=== PATIENT | female | born 1965 | race Caucasian/White ===

== ENCOUNTER 2018-03-10 10:40 | Inpatient (IN) | payer MEDICARE, MEDICAID ==
[~2018-03-10] VITALS: Ht 152.4 cm; Wt 113.4 kg
--- NOTE | 2018-03-10 11:06 | NUR ---
[facility] 4 PRESSURE ULCER ON LEFT ISCHIUM. PT COMPLAINS OF GENERALIZED CHRONIC PAIN THAT IS "ALWAYS A 10/10". PT IS AOX4, VSS, RR EVEN AND UNLABORED. SKIN WARM TO TOUCH, DRY, INTACT. NO ACUTE DISTRESS NOTED. READY FOR EVAL AND ORDERS.
--- NOTE | 2018-03-10 11:15 | NUR ---
TRIXIE PETERS STRADDLE BUGGY OPERATOR AT BEDSIDE FOR WOUND ASSESSMENT
[2018-03-10] MEDS ORDERED: IV NS 0.9% 1,000 ML BAG IV ONE (11:30)
[2018-03-10] MEDS ORDERED: ONDANSETRON HCL/PF 4 MG/2 ML VIAL IVP ONE (11:30)
[2018-03-10] MEDS ORDERED: MORPHINE SULFATE INJ 2 MG/ML DISP.SYRIN IV ONE (11:30)
[2018-03-10] MEDS ORDERED: MAGN400O6 PO (11:51)
[2018-03-10] MEDS ORDERED: METO25TA20 PO (11:51)
[2018-03-10] MEDS ORDERED: FURO-145 PO (11:51)
[2018-03-10] MEDS ORDERED: ASCO500T8 PO (11:51)
[2018-03-10] MEDS ORDERED: OXYC-128 PO (11:51)
[2018-03-10] MEDS ORDERED: FLUT16SP BNOSTRILS (11:51)
[2018-03-10] MEDS ORDERED: ACID1TAB12 PO (11:51)
[2018-03-10] MEDS ORDERED: TRAM50TA2 PO (11:51)
[2018-03-10] MEDS ORDERED: FENO160T PO (11:51)
[2018-03-10] MEDS ORDERED: ZINC220C8 PO (11:51)
[2018-03-10] MEDS ORDERED: CALC-7 PO (11:51)
[2018-03-10] MEDS ORDERED: MULT-447 PO (11:51)
[2018-03-10] MEDS ORDERED: GABA800T11 PO (11:51)
[2018-03-10] MEDS ORDERED: BISA10SU8 RC (11:51)
[2018-03-10] MEDS ORDERED: INTE0.3K3 SQ (11:51)
[2018-03-10] MEDS ORDERED: OXYB5TAB11 PO (11:51)
[2018-03-10] MEDS ORDERED: POTA20TA83 PO (11:51)
[2018-03-10] MEDS ORDERED: ACET-868 PO ×2 (11:51)
[2018-03-10] MEDS ORDERED: DOCU-141 PO (11:51)
--- NOTE | 2018-03-10 11:58 | NUR ---
PHLEB AT BEDSIDE FOR BLOOD DRAW
[2018-03-10] MEDS ORDERED: ACETAMINOPHEN 325 MG TABLET ONE (12:13)
[2018-03-10 12:30] LABS: BASOPHILS # (AUTO) 0.1 /CMM (0.0-0.2); EOSINOPHILS % (AUTO) 3.7 % (0.0-6.0); HEMATOCRIT 34 % (33-45); HEMOGLOBIN 10.8 g/dL (11.5-14.8); LYMPHOCYTES # (AUTO) 2.1 /CMM (0.8-4.8); LYMPHOCYTES % (AUTO) 20.7 % (20.0-44.0); MEAN CORPUSCULAR HGB CONC 32 g/dl (31.0-36.0); MEAN CORPUSCULAR VOLUME 83 fL (82-100); MONOCYTES # (AUTO) 0.9 /CMM (0.1-1.30); MONOCYTES % (AUTO) 9.2 % (2.0-12.0); NEUTROPHILS # (AUTO) 6.7 /CMM (1.8-8.9); NEUTROPHILS % (AUTO) 65.4 % (43.0-81.0); PLATELET COUNT (AUTO) 475 /CMM (150-450); RED BLOOD CELL COUNT(AUTO) 4.12 MIL/uL (4.0-5.2); WHITE BLOOD COUNT (AUTO) 10.2 K/uL (4.3-11.0)
[2018-03-10] MEDS ORDERED: ACETAMINOPHEN 325 MG TABLET PO ONE (12:30)
--- NOTE | 2018-03-10 12:33 | NUR ---
REPORT GIVEN TO NICOL BUTLER FOR 315-1 MS
[2018-03-10 12:39] LABS: CALCIUM, SERUM 9.2 mg/dL (8.5-10.1); CREATININE 0.6 mg/dL (0.6-1.3)
[2018-03-10 12:45] LABS: ALBUMIN 2.5 g/dL (3.4-5.0); BILIRUBIN,DIRECT 0.1 mg/dL (0.0-0.2); BILIRUBIN,TOTAL 0.3 mg/dL (0.2-1.0); TOTAL PROTEIN, SERUM 7.4 g/dL (6.4-8.2)
[2018-03-10] MEDS ORDERED: IOHEXOL-300 100 ML VIAL IV ONE (12:45)
[2018-03-10] MEDS ORDERED: CT SWABBABLE VALVE TRANS SET 1 EA INFUS.SET MC ONE (12:45)
[2018-03-10] MEDS ORDERED: IV NS 0.9% 250 ML IV ONE (12:46)
--- NOTE | 2018-03-10 12:53 | NUR ---
PT TAKEN TO RADIOLOGY VIA [facility].
[2018-03-10] MEDS: DAKINS QUARTER STRENGTH (0.125%) 480 ML BOTTLE TOP SCH (13:30)
--- NOTE | 2018-03-10 13:44 | NUR ---
PT TRANSFERRED TO FLOOR VIA [facility] WITH [facility] EMT
--- NOTE | 2018-03-10 14:00 | NUR ---
MS PATENT ENGINEER NOTE PT ARRIVED TO MEDSUR UNIT IN STABLE CONDITION VIA GURNEY ACCOMPANIED BY ER STAFF. PT IS A/O X3, AFEBRILE. RESPIRATIONS ARE EVEN AND UNLABORED, NOT IN ANY ACUTE DISTRESS NOTED. PUPILS ARE REACTIVE TO LIGHT, BILATERAL HAND ANDROID UI DEVELOPER ARE STRONG AND EQUAL. ABDOMEN IS SOFT AND NONDISTENDED, BOWEL SOUNDS ARE PRESENT IN ALL 4 QUADRANTS UPON AUSCULTATION. IV SITE TO RFA G22 INTACT, NO INFILTRATION NOTED. DRESSING KEPT CLEAN AND DRY. LEFT BUTTOCK WOUND NOTED WITH NO DRESSING, SACRAL REDNESS AND PICTURES WERE TAKEN. ALL BELONGINGS WERE ACCOUNTED FOR AND SIGNED. APPLIED ID BAND. DR. DIEHL MADE AWARE OF ADMISSION WITH ORDERS NOTED AND CARRIED OUT. WILL CONTINUE TO MONITOR THROUGHOUT SHIFT FOR CONTINUITY OF CARE.
--- NOTE | 2018-03-10 14:30 | NUR ---
MS RN NOTES-- CALLED PHARMACY FOR DAKINS SOLUTION, SAID THEY WILL BRING IT UP.
[2018-03-10 16:00] VITALS: BP 97/61
[2018-03-10] MEDS ORDERED: TRAMADOL HCL 50 MG TABLET PO PRN (16:00)
[2018-03-10] MEDS ORDERED: INTERFERON BETA 1B SQ SCH (16:00)
[2018-03-10] MEDS ORDERED: MAGNESIUM HYDROXIDE 30 ML UDC PO PRN ×2 (16:00→18:00)
--- NOTE | 2018-03-10 16:20 | NUR ---
MS RN NOTE-- STILL NO DAKINS SOLUTION. CALLED PHARMACY RE: DAKINS SOLUTION, STATED THEY "WILL SEND SOMEONE TO BRING IT UP."
--- NOTE | 2018-03-10 16:50 | NUR ---
MS RN NOTES-- NO DAKINS SOLUTION. WOUND CARE DONE WITH NORMAL SALINE MOISTENED KERLIX, COVERED WITH DRY DRESSING AND TAPE.
[2018-03-10] MEDS: DOCUSATE SODIUM 100 MG CAPSULE PO SCH (17:37)
[2018-03-10] MEDS: OXYBUTYNIN CHLORIDE 5 MG TABLET PO SCH (17:37)
[2018-03-10] MEDS: GABAPENTIN 400 MG CAPSULE PO SCH (17:42)
[2018-03-10] MEDS ORDERED: HYDROCODONE/APAP 5/325MG 1 EACH TABLET PO PRN (18:00)
[2018-03-10] MEDS ORDERED: ACETAMINOPHEN 325 MG TABLET PO PRN (18:00)
[2018-03-10] MEDS ORDERED: MAG HYDROX/AL HYDROX/SIMETH 30 ML UDC PO PRN (18:00)
[2018-03-10] MEDS ORDERED: ONDANSETRON HCL/PF 4 MG/2 ML VIAL IVP PRN (18:00)
[2018-03-10] MEDS ORDERED: Z GUARD REMEDY 2 OZ OINT TP PRN (18:00)
--- NOTE | 2018-03-10 18:31 | NUR ---
MS RN CLOSING NOTES ALL DUE MEDS GIVEN, NEEDS MET AND RENDERED. PT IS A/O X3, AFEBRILE. RESPIRATIONS ARE EVEN AND UNLABORED, NOT IN ANY ACUTE DISTRESS NOTED. PT DENIES ANY PAIN AT THIS TIME, NO C/O SOB, N/V. IV SITE INTACT, NO INFILTRATION NOTED. DRESSING KEPT CLEAN AND DRY. SAFETY MEASURES ARE IN PLACE. REMINDED PT TO USE CALL LIGHT WHEN ASSISTANCE IS NEEDED, CALL LIGHT IS LEFT WITHIN REACH. WILL ENDORSE TO NEXT SHIFT FOR CONTINUITY OF CARE.
--- NOTE | 2018-03-10 19:40 | NUR ---
MS RN NOTES RECEIVED ON BED A/O X3,NO SOB,WENDY PAIN,SACRAL WOUND WITH DRESSING INTACT AND DRY.SALINE LOCK RFA INTACT AND PATENT.INSTRUCTED NPO POST MIDNIGHT FOR SACRAL WOUND DEBRIDEMENT,CONSENT ON CHART.OBESE,ON GEL BED FOR SKIN MANAGEMENT.CALL LIGHT IN REACH,NEEDS ANTICIPATED.
[2018-03-10 20:00] VITALS: BP 103/57
[2018-03-10] MEDS: METOPROLOL TARTRATE 25 MG TABLET PO SCH (21:22)
[2018-03-10] MEDS: oxyCODONE/APAP (5/325 MG) 1 UDTAB TABLET PO PRN (22:23)
--- NOTE | 2018-03-10 22:23 | NUR ---
MS RN NOTES PAIN MANAGEMENT C/O GENERALIZED PAIN 9/10 ON PAIN SCALE.MEDICATED WITH PERCOCET 1 TAB PO ORDERED FOR SEVERE PAIN.
--- NOTE | 2018-03-11 01:00 | NUR ---
MS RN NOTES SLEEPING,PERCOCET EFFECTIVE FOR PAIN MANAGEMENT,KEPT NPO POST MIDNIGHT,GOING FOR SACRAL WOUND DEBRIDEMENT AT 0730,CONSENT ON CHART.CALL LIGHT IN REACH,NEEDS ATTENDED.WILL ENDORSE TO DAY NURSE FOR GONZALO.
[2018-03-11] MEDS: DAKINS QUARTER STRENGTH (0.125%) 480 ML BOTTLE TOP SCH ×2 (01:30→13:30)
[2018-03-11] MEDS ORDERED: MIDAZOLAM HCL 2 MG/2ML VIAL ONE (07:05)
[2018-03-11] MEDS ORDERED: FENTANYL PF 250MCG/5ML AMPUL ONE (07:06)
[2018-03-11] MEDS ORDERED: ROCURONIUM BROMIDE 50 MG/5 ML ONE (07:07)
[2018-03-11] MEDS ORDERED: METOCLOPRAMIDE HCL 10 MG/2 ML VIAL ONE (07:07)
[2018-03-11] MEDS ORDERED: ANESTHESIA TRAY IN PYXIS 1 EA TRAY MC ONE (07:09)
--- NOTE | 2018-03-11 07:10 | NUR ---
MS RN OPENING NOTES RECEIVED PT LAYING IN BED RESTING COMFORTABLY. PT IS EASILY AROUSABLE, A/O X3, AFEBRILE. RESPIRATIONS ARE EVEN AND UNLABORED, NOT IN ANY ACUTE DISTRESS NOTED. PT DENIES ANY CHEST PAIN, SOB, N/V. IV SITE TO RFA INTACT, NO INFILTRATION NOTED. DRESSING KEPT CLEAN AND DRY. SAFETY MEASURES ARE IN PLACE. REMINDED PT TO USE CALL LIGHT WHEN ASSISTANCE IS NEEDED, CALL LIGHT IS LEFT WITHIN REACH.
--- NOTE | 2018-03-11 07:15 | NUR ---
MS RN NOTES-- PT P/U BY OR STAFF FOR SURGICAL WOUND DEBRIDEMENT. ALL CONSENTS SIGNED AND CHECKLIST DONE. PT LEFT IN STABLE CONDITION VIA GURNEY.
[2018-03-11 07:37] LABS: BASOPHILS # (AUTO) 0.1 /CMM (0.0-0.2); BASOPHILS % (AUTO) 1.1 % (0.0-2.0); EOSINOPHILS % (AUTO) 5.4 % (0.0-6.0); HEMATOCRIT 30 % (33-45); HEMOGLOBIN 9.7 g/dL (11.5-14.8); LYMPHOCYTES # (AUTO) 1.4 /CMM (0.8-4.8); LYMPHOCYTES % (AUTO) 21.4 % (20.0-44.0); MEAN CORPUSCULAR HGB CONC 32 g/dl (31.0-36.0); MEAN CORPUSCULAR VOLUME 81 fL (82-100); MONOCYTES # (AUTO) 0.6 /CMM (0.1-1.30); MONOCYTES % (AUTO) 8.6 % (2.0-12.0); NEUTROPHILS # (AUTO) 4.1 /CMM (1.8-8.9); NEUTROPHILS % (AUTO) 63.5 % (43.0-81.0); PLATELET COUNT (AUTO) 433 /CMM (150-450); RED BLOOD CELL COUNT(AUTO) 3.74 MIL/uL (4.0-5.2); WHITE BLOOD COUNT (AUTO) 6.4 K/uL (4.3-11.0)
[2018-03-11 07:41] LABS: CALCIUM, SERUM 8.7 mg/dL (8.5-10.1); CREATININE 0.5 mg/dL (0.6-1.3); MAGNESIUM 1.9 mg/dL (1.8-2.4); PHOSPHORUS 2.9 mg/dL (2.5-4.9); POTASSIUM 3.7 mmol/L (3.5-5.1)
[2018-03-11] MEDS: BISACODYL SUPP (10 MG) 10 MG/SUPP.RECT SUPP.RECT RC SCH (09:00)
--- NOTE | 2018-03-11 09:20 | NUR ---
MS RN NOTES-- PT CAME BACK FROM SURGICAL DEBRIDEMENT IN STABLE CONDITION. PT REMAINS A/OX3, AFEBRILE. RESPIRATIONS ARE EVEN AND UNLABORED, NOT IN ANY ACUTE DISTRESS NOTED. VITAL SIGNS WNL. DRESSING INTACT TO LEFT BUTTOCK. ORDERS NOTED AND CARRIED OUT.
[2018-03-11] MEDS: GABAPENTIN 400 MG CAPSULE PO SCH ×3 (09:36→16:10)
[2018-03-11] MEDS: ZINC SULFATE 220 MG CAPSULE PO SCH (09:36)
[2018-03-11] MEDS: ASCORBIC ACID 500 MG TABLET PO SCH (09:36)
[2018-03-11] MEDS: FLUTICASONE PROPIONATE 16 GM BOTTLE NS SCH (09:36)
[2018-03-11] MEDS: DOCUSATE SODIUM 100 MG CAPSULE PO SCH ×2 (09:37→16:10)
[2018-03-11] MEDS: OXYBUTYNIN CHLORIDE 5 MG TABLET PO SCH ×3 (09:37→16:10)
[2018-03-11] MEDS: FUROSEMIDE 20 MG TABLET PO SCH (09:37)
[2018-03-11] MEDS: MULTIVIT W/MINERALS 1 TAB TABLET PO SCH (09:37)
[2018-03-11] MEDS: CALCIUM CARB 250MG /VITAMIN D 1 UDTAB PO SCH (09:37)
[2018-03-11] MEDS: METOPROLOL TARTRATE 25 MG TABLET PO SCH ×2 (09:37→20:45)
[2018-03-11] MEDS: POTASSIUM CHLORIDE 20 MEQ TAB.PRT.SR PO SCH (09:37)
[2018-03-11] MEDS: FENOFIBRATE NANOCRYS (145 MG) 145 MG TABLET PO SCH (09:37)
[2018-03-11] MEDS: ACIDOPHILUS/BULGARICUS 1 EACH TAB.CHEW PO SCH (09:37)
--- NOTE | 2018-03-11 13:28 | NUR ---
MS RN NOTES-- JASSON PRABHAKAR FROM PHARMACY, DAKINS SOLUTION IS BEING DELIVERED TO THE UNIT.
[2018-03-11] MEDS: MENTHOL/CETYLPYRD (CEPACOL) 1 LOZ LOZENGE PO PRN ×2 (14:35→21:50)
[2018-03-11 16:00] VITALS: BP 109/67
[2018-03-11 18:22] LABS: APPEARANCE,URINE CLEAR (CLEAR); BILIRUBIN,URINE NEGATIVE (NEGATIVE); BLOOD, URINE NEGATIVE Ery/uL (NEGATIVE); COLOR,URINE YELLOW (YELLOW); KETONES,URINE NEGATIVE (NEGATIVE); LEUKOCYTE ESTERASE ,URINE TRACE (NEGATIVE); NITRITE, URINE NEGATIVE (NEGATIVE); PROTEIN,URINE NEGATIVE (NEGATIVE); UGLUCOSE NEGATIVE (NEGATIVE); UROBILINOGEN,URINE 0.2 EU/dL (0.2)
[2018-03-11 18:53] LABS: BACTERIA,URINE None seen /HPF (None Seen); RBC,URINE NONE SEEN /HPF (0-2); SQUAMOUS EPITHELIAL CELL,UR None Seen /HPF (None Seen); YEAST,URINE Moderate /HPF (None Seen)
--- NOTE | 2018-03-11 19:50 | NUR ---
RN OPENING NOTES RECEIVED REPORT FROM [facility] NICOL BUTLER. FOUND Pt ASLEEP IN BED; EASILY AWAKENED BY NAME. NO S/S OF ACUTE DISTRESS OR SOB NOTED. RESPIRATIONS EVEN AND UNLABORED. Pt IS A/OX3, WITH SOME CONFUSION AT TIMES. IV ACCESS ON AND #22G; SL. SAFETY MEASURES IN PLACE. BED LOW, LOCKED, HOB ELEVATED, SIDE RAILS UP, CALL LIGHT & BED SIDE TABLE WITHIN REACH; BED ALARM ON. WILL CONTINUE TO MONITOR Pt's CONDITION AND SAFETY THROUGHOUT THE NIGHT.
[2018-03-11 20:00] VITALS: BP 110/67
[2018-03-12] MEDS: DAKINS QUARTER STRENGTH (0.125%) 480 ML BOTTLE TOP SCH ×2 (02:18→14:43)
--- NOTE | 2018-03-12 06:00 | NUR ---
RN NOTES MRSA SWAB SAMPLE COLLECTED AND SENT WITH LAB.
--- NOTE | 2018-03-12 06:31 | NUR ---
RN CLOSING NOTES NO SIGNIFICANT CHANGES IN Pt's CONDITION. Pt IS RESTING IN BED. RESPIRATIONS EVEN AND UNLABORED. REMAINS STABLE PER BASELINE. NO S/S OF ACUTE DISTRESS OR SOB NOTED DURING THE NIGHT. ALL NEEDS MET AND ATTENDED TO. SAFETY MEASURES IN PLACE. WILL ENDORSE TO DAYSHIFT RN FOR Pt's GONZALO.
--- NOTE | 2018-03-12 07:52 | NUR ---
MS RN OPENING NOTES: RECEIVED PT FROM NIGHTSHIFT RN IN STABLE CONDITION. PT IS A/O X3. NO SOB OR ACUTE SIGNS OF DISTRESS NOTED. BREATHING IS EVEN AND UNLABORED. PT ON RA AND SATING WELL. SHE DENIES ANY PAIN AT THIS TIME. IV TO LEFT HAND NOTED TO BE PATENT AND INTACT. NO REDNESS OR SIGNS OF INFILTRATION NOTED. WOUND DRESSINGS NOTED TO BE CLEAN, DRY, AND INTACT. BED IN LOW LOCKED POSITION, SIDE RAILS UP X2, CALL LIGHT WITHIN REACH. WILL CONTINUE TO MONITOR
[2018-03-12 08:00] VITALS: BP 104/53
[2018-03-12] MEDS: BISACODYL SUPP (10 MG) 10 MG/SUPP.RECT SUPP.RECT RC SCH (09:00)
[2018-03-12] MEDS: CALCIUM CARB 250MG /VITAMIN D 1 UDTAB PO SCH (09:39)
[2018-03-12] MEDS: ZINC SULFATE 220 MG CAPSULE PO SCH (09:40)
[2018-03-12] MEDS: ACIDOPHILUS/BULGARICUS 1 EACH TAB.CHEW PO SCH (09:40)
[2018-03-12] MEDS: FENOFIBRATE NANOCRYS (145 MG) 145 MG TABLET PO SCH (09:40)
[2018-03-12] MEDS: FUROSEMIDE 20 MG TABLET PO SCH (09:40)
[2018-03-12] MEDS: OXYBUTYNIN CHLORIDE 5 MG TABLET PO SCH ×3 (09:41→16:38)
[2018-03-12] MEDS: MULTIVIT W/MINERALS 1 TAB TABLET PO SCH (09:41)
[2018-03-12] MEDS: METOPROLOL TARTRATE 25 MG TABLET PO SCH ×2 (09:41→20:49)
[2018-03-12] MEDS: GABAPENTIN 400 MG CAPSULE PO SCH ×3 (09:41→16:38)
[2018-03-12] MEDS: ASCORBIC ACID 500 MG TABLET PO SCH (09:42)
[2018-03-12] MEDS: POTASSIUM CHLORIDE 20 MEQ TAB.PRT.SR PO SCH (09:42)
[2018-03-12] MEDS: DOCUSATE SODIUM 100 MG CAPSULE PO SCH ×2 (09:42→16:38)
[2018-03-12] MEDS: FLUTICASONE PROPIONATE 16 GM BOTTLE NS SCH (09:45)
[2018-03-12] MEDS ORDERED: PIPERACILLIN /TAZOBACTAM 3.375 G in IV D5W 50 ML IV SCH (13:00)
[2018-03-12 16:00] VITALS: BP 107/57
[2018-03-12] MEDS: PIPERACILLIN /TAZOBACTAM 3.375 G in IV D5W 100 ML IV SCH (16:38)
--- NOTE | 2018-03-12 18:59 | NUR ---
MS RN CLOSING NOTES PT STABLE AT THIS TIME. ALL NEEDS MET DURING SHIFT AND ORDERS CARRIED OUT ACCORDINGLY. ALL DUE MEDS GIVEN. IV REMAINS PATENT AND INTACT. PT REPOSITIONED AND TURNED PER PROTOCOL. WOUND CARE RENDERED ORDERED. SAFETY MEASURES REMAIN IN PLACE. WILL ENDORSE TO NIGHTSHIFT RN FOR GONZALO
--- NOTE | 2018-03-12 19:45 | NUR ---
RN OPENING NOTES RECEIVED REPORT FROM DAYSHIFT RN AFSATU. FOUND Pt AWAKE, RESTING IN BED, WATCHING TV. NO S/S OF ACUTE DISTRESS OR SOB NOTED. RESPIRATIONS EVEN AND UNLABORED. Pt IS A/OX3, WITH SOME FORGETFULNESS, BUT IS VERBAL, AND ABLE TO MAKE NEEDS KNOWN. IV ACCESS ON RFA #24G, SL. SAFETY MEASURES IN PLACE. BED LOW, LOCKED, HOB ELEVATED, SIDE RAILS UP, CALL LIGHT AND BEDSIDE TABLE WITHIN REACH. WILL CONTINUE TO MONITOR Pt's CONDITION AND SAFETY THROUGHOUT THE NIGHT.
[2018-03-12 20:00] VITALS: BP 104/54
[2018-03-12] MEDS: MENTHOL/CETYLPYRD (CEPACOL) 1 LOZ LOZENGE PO PRN (20:40)
[2018-03-12] MEDS: oxyCODONE/APAP (5/325 MG) 1 UDTAB TABLET PO PRN (20:49)
[2018-03-13] MEDS: PIPERACILLIN /TAZOBACTAM 3.375 G in IV D5W 100 ML IV SCH ×4 (00:22→23:26)
[2018-03-13] MEDS: DAKINS QUARTER STRENGTH (0.125%) 480 ML BOTTLE TOP SCH ×2 (00:36→13:24)
[2018-03-13 07:01] LABS: BASOPHILS % (AUTO) 0.6 % (0.0-2.0); EOSINOPHILS % (AUTO) 6.6 % (0.0-6.0); HEMATOCRIT 31 % (33-45); LYMPHOCYTES # (AUTO) 0.6 /CMM (0.8-4.8); LYMPHOCYTES % (AUTO) 10.1 % (20.0-44.0); MEAN CORPUSCULAR HGB CONC 33 g/dl (31.0-36.0); MEAN CORPUSCULAR VOLUME 80 fL (82-100); MONOCYTES # (AUTO) 0.4 /CMM (0.1-1.30); NEUTROPHILS # (AUTO) 4.8 /CMM (1.8-8.9); NEUTROPHILS % (AUTO) 75.7 % (43.0-81.0); PLATELET COUNT (AUTO) 392 /CMM (150-450); RED BLOOD CELL COUNT(AUTO) 3.86 MIL/uL (4.0-5.2); WHITE BLOOD COUNT (AUTO) 6.4 K/uL (4.3-11.0)
[2018-03-13 07:14] LABS: CALCIUM, SERUM 8.5 mg/dL (8.5-10.1); CREATININE 0.5 mg/dL (0.6-1.3); POTASSIUM 3.9 mmol/L (3.5-5.1)
[2018-03-13 08:00] VITALS: BP 104/70
[2018-03-13] MEDS: ASCORBIC ACID 500 MG TABLET PO SCH (08:41)
[2018-03-13] MEDS: ZINC SULFATE 220 MG CAPSULE PO SCH (08:41)
[2018-03-13] MEDS: POTASSIUM CHLORIDE 20 MEQ TAB.PRT.SR PO SCH (08:41)
[2018-03-13] MEDS: DOCUSATE SODIUM 100 MG CAPSULE PO SCH ×2 (08:42→16:58)
[2018-03-13] MEDS: MULTIVIT W/MINERALS 1 TAB TABLET PO SCH (08:42)
[2018-03-13] MEDS: CALCIUM CARB 250MG /VITAMIN D 1 UDTAB PO SCH (08:42)
[2018-03-13] MEDS: OXYBUTYNIN CHLORIDE 5 MG TABLET PO SCH ×3 (08:42→16:58)
[2018-03-13] MEDS: FENOFIBRATE NANOCRYS (145 MG) 145 MG TABLET PO SCH (08:42)
[2018-03-13] MEDS: ACIDOPHILUS/BULGARICUS 1 EACH TAB.CHEW PO SCH (08:42)
[2018-03-13] MEDS: FUROSEMIDE 20 MG TABLET PO SCH (08:42)
[2018-03-13] MEDS: METOPROLOL TARTRATE 25 MG TABLET PO SCH ×2 (08:44→21:05)
[2018-03-13] MEDS: oxyCODONE/APAP (5/325 MG) 1 UDTAB TABLET PO PRN ×2 (08:47→21:58)
[2018-03-13] MEDS: MENTHOL/CETYLPYRD (CEPACOL) 1 LOZ LOZENGE PO PRN ×2 (09:16→14:40)
[2018-03-13] MEDS: BISACODYL SUPP (10 MG) 10 MG/SUPP.RECT SUPP.RECT RC SCH (09:17)
[2018-03-13] MEDS: GABAPENTIN 400 MG CAPSULE PO SCH ×3 (09:19→16:58)
[2018-03-13] MEDS: FLUTICASONE PROPIONATE 16 GM BOTTLE NS SCH (09:20)
[2018-03-13 16:00] VITALS: BP 107/64
--- NOTE | 2018-03-13 19:35 | NUR ---
RN MS OPENING NOTES RECEIVED PT IN BED, AWAKE, ALERT ORIENTED X3, ABLE TO MAKE NEEDS KNOWN. BREATHING EVEN AND UNLABORED ON ROOM AIR, NO SOB. IV IN R FA #24G TKO. NO COMPLAINT OF PAIN OR DISCOMFORT AT THE TIME, BED IN LOCKED POSITION, CALL LIGHT WITHIN REACH AT ALL TIMES, WILL CONTINUE TO MONITOR
[2018-03-13 20:00] VITALS: BP 113/69
[2018-03-13] MEDS ORDERED: MENTHOL/CETYLPYRD (CEPACOL) 1 LOZ LOZENGE ONE (21:54)
[2018-03-14] MEDS: DAKINS QUARTER STRENGTH (0.125%) 480 ML BOTTLE TOP SCH ×2 (01:30→12:34)
--- NOTE | 2018-03-14 06:28 | NUR ---
RN MS CLOSING NOTES PT REMAINS IN BED, AWAKE, ALERT ORIENTED X3, ABLE TO MAKE NEEDS KNOWN. BREATHING EVEN AND UNLABORED ON ROOM AIR, NO SOB. IV IN R FA #24G TKO. NO COMPLAINT OF PAIN OR DISCOMFORT AT THE TIME, WOUND DRESSING DONE. BED IN LOCKED POSITION, CALL LIGHT WITHIN REACH AT ALL TIMES, WILL CONTINUE TO MONITOR
[2018-03-14] MEDS: PIPERACILLIN /TAZOBACTAM 3.375 G in IV D5W 100 ML IV SCH (06:55)
--- NOTE | 2018-03-14 07:24 | NUR ---
MS RN OPENING NOTES RECEIVED PATIENT IN STABLE CONDITION. IN NO APPARENT DISTRESS. BEDSIDE RAILS ARE UPX2. BED IS LOCKED AND LOWERED. CALL LIGHT IS WITHIN REACH. IV LINE IS INTACT AND PATENT. WILL CONTINUE TO MONITOR PATIENT.
[2018-03-14 08:18] VITALS: BP 93/65
[2018-03-14] MEDS ORDERED: CEFEPIME 1 GM in IV NS 0.9% 50 ML IV SCH (08:30)
[2018-03-14] MEDS: ACIDOPHILUS/BULGARICUS 1 EACH TAB.CHEW PO SCH (08:50)
[2018-03-14] MEDS: ZINC SULFATE 220 MG CAPSULE PO SCH (08:50)
[2018-03-14] MEDS: ASCORBIC ACID 500 MG TABLET PO SCH (08:50)
[2018-03-14] MEDS: CALCIUM CARB 250MG /VITAMIN D 1 UDTAB PO SCH (08:50)
[2018-03-14] MEDS: GABAPENTIN 400 MG CAPSULE PO SCH ×3 (08:51→16:33)
[2018-03-14] MEDS: FUROSEMIDE 20 MG TABLET PO SCH (08:51)
[2018-03-14] MEDS: DOCUSATE SODIUM 100 MG CAPSULE PO SCH ×2 (08:51→16:33)
[2018-03-14] MEDS: OXYBUTYNIN CHLORIDE 5 MG TABLET PO SCH ×3 (08:51→16:33)
[2018-03-14] MEDS: MULTIVIT W/MINERALS 1 TAB TABLET PO SCH (08:51)
[2018-03-14] MEDS: BISACODYL SUPP (10 MG) 10 MG/SUPP.RECT SUPP.RECT RC SCH (08:51)
[2018-03-14] MEDS: FLUTICASONE PROPIONATE 16 GM BOTTLE NS SCH (08:52)
[2018-03-14] MEDS: POTASSIUM CHLORIDE 20 MEQ TAB.PRT.SR PO SCH (08:52)
[2018-03-14] MEDS: METOPROLOL TARTRATE 25 MG TABLET PO SCH ×2 (08:52→20:57)
[2018-03-14] MEDS: FENOFIBRATE NANOCRYS (145 MG) 145 MG TABLET PO SCH (08:52)
--- NOTE | 2018-03-14 09:30 | NUR ---
CALLED PHARMACY TO PROVIDE CEFEPIME. PHARMACY WILL PROVIDE.
[2018-03-14] MEDS: MENTHOL/CETYLPYRD (CEPACOL) 1 LOZ LOZENGE PO PRN ×3 (10:31→20:57)
[2018-03-14] MEDS: CEFEPIME 2 GM in IV D5W 100 ML IV SCH ×2 (10:41→20:57)
[2018-03-14] MEDS: MUPIROCIN OINT 2% 22 GM TUBE SCH ×2 (13:43→21:35)
[2018-03-14 15:54] VITALS: BP 107/76
--- NOTE | 2018-03-14 18:51 | NUR ---
MS RN CLOSING NOTES PATIENT IS IN STABLE CONDITION. IN NO APPARENT DISTRESS. BEDSIDE RAILS ARE UPX2. BED IS LOCKED AND LOWERED. CALL LIGHT IS WITHIN REACH. IV LINE IS INTACT AND PATENT. WILL ENDORSE CARE TO LEAD GENERATION MARKETING MANAGER NURSE FOR GONZALO.
--- NOTE | 2018-03-14 19:35 | NUR ---
RN MS OPENING NOTES RECEIVED PT IN BED, AWAKE, ALERT ORIENTED X3, ABLE TO MAKE NEEDS KNOWN. BREATHING EVEN AND UNLABORED ON ROOM AIR, NO SOB. IV IN R FA #24G TKO. CONTINUES ON CONTACT ISOLATION FOR MRSA NARIS. NO COMPLAINT OF PAIN OR DISCOMFORT AT THE TIME, BED IN LOCKED POSITION, CALL LIGHT WITHIN REACH AT ALL TIMES, WILL CONTINUE TO MONITOR
[2018-03-14 20:00] VITALS: BP 107/64
[2018-03-15] MEDS: DAKINS QUARTER STRENGTH (0.125%) 480 ML BOTTLE TOP SCH ×2 (01:35→12:49)
--- NOTE | 2018-03-15 06:04 | NUR ---
RN MS CLOSING NOTES PT REMAINS IN BED, AWAKE, ALERT ORIENTED X3, ABLE TO MAKE NEEDS KNOWN. BREATHING EVEN AND UNLABORED ON ROOM AIR, NO SOB. IV IN R FA #24G TKO. CONTINUES ON CONTACT ISOLATION FOR MRSA NARES. NO COMPLAINT OF PAIN OR DISCOMFORT AT THE TIME, WOUND DRESSING DONE. BED IN LOCKED POSITION, CALL LIGHT WITHIN REACH AT ALL TIMES, WILL CONTINUE TO MONITOR
--- NOTE | 2018-03-15 06:30 | NUR ---
MS RN CLOSING NOTES PATIENT IS IN STABLE CONDITION. IN NO APPARENT DISTRESS. BEDSIDE RAILS ARE UPX2. BED IS LOCKED AND LOWERED. CALL LIGHT IS WITHIN REACH. IV LINE IS INTACT AND PATENT. ALL NEEDS WERE MET. WILL ENDORSE CARE TO HEAT TREATING OPERATOR NURSE FOR GONZALO.
[2018-03-15 08:00] VITALS: BP 115/65
[2018-03-15] MEDS: DOCUSATE SODIUM 100 MG CAPSULE PO SCH ×2 (09:00→16:49)
[2018-03-15] MEDS: BISACODYL SUPP (10 MG) 10 MG/SUPP.RECT SUPP.RECT RC SCH (09:00)
[2018-03-15] MEDS: FLUTICASONE PROPIONATE 16 GM BOTTLE NS SCH (09:23)
[2018-03-15] MEDS: CEFEPIME 2 GM in IV D5W 100 ML IV SCH ×2 (09:24→20:42)
[2018-03-15] MEDS: MENTHOL/CETYLPYRD (CEPACOL) 1 LOZ LOZENGE PO PRN ×3 (09:31→19:55)
[2018-03-15] MEDS: FUROSEMIDE 20 MG TABLET PO SCH (09:31)
[2018-03-15] MEDS: POTASSIUM CHLORIDE 20 MEQ TAB.PRT.SR PO SCH (09:31)
[2018-03-15] MEDS: ASCORBIC ACID 500 MG TABLET PO SCH (09:31)
[2018-03-15] MEDS: GABAPENTIN 400 MG CAPSULE PO SCH ×3 (09:32→16:39)
[2018-03-15] MEDS: FENOFIBRATE NANOCRYS (145 MG) 145 MG TABLET PO SCH (09:32)
[2018-03-15] MEDS: MULTIVIT W/MINERALS 1 TAB TABLET PO SCH (09:32)
[2018-03-15] MEDS: ACIDOPHILUS/BULGARICUS 1 EACH TAB.CHEW PO SCH (09:32)
[2018-03-15] MEDS: METOPROLOL TARTRATE 25 MG TABLET PO SCH ×2 (09:33→20:43)
[2018-03-15] MEDS: OXYBUTYNIN CHLORIDE 5 MG TABLET PO SCH ×3 (09:33→16:39)
[2018-03-15] MEDS: ZINC SULFATE 220 MG CAPSULE PO SCH (09:33)
[2018-03-15] MEDS: CALCIUM CARB 250MG /VITAMIN D 1 UDTAB PO SCH (09:34)
[2018-03-15] MEDS: MUPIROCIN OINT 2% 22 GM TUBE SCH ×2 (09:42→20:42)
[2018-03-15 16:00] VITALS: BP 100/66
--- NOTE | 2018-03-15 19:05 | NUR ---
MS RN OPENING NOTES RECEIVED PATIENT IN BED, ALERT, ORIENTED X 3. BREATHING EVEN AND UNLABORED, IN NO APPARENT DISTRESS. BEDSIDE RAILS ARE UPX2. BED IS LOCKED AND LOWERED. CALL LIGHT IS WITHIN REACH. IV LINE ON RFA G#22 INTACT AND PATENT. PATIENT STABLE ENDORSED BY THE MORNING RN. WILL CONTINUE TO MONITOR ACCORDINGLY.
[2018-03-15 20:00] VITALS: BP 108/70
[2018-03-16] MEDS: DAKINS QUARTER STRENGTH (0.125%) 480 ML BOTTLE TOP SCH ×2 (00:40→13:10)
--- NOTE | 2018-03-16 07:30 | NUR ---
MS/RN OPENING NOTE THE PATIENT ALERT AND ORIENTED X3. DENIES PAIN. IN ROOM AIR AND DENIES SOB. RESPIRATION REGULAR AND UNLABORED. IN NO APPARENT DISTRESS. RFA G 22 PATENT AND SALINE LOCKED. BED LOW AND LOCKED. SIDE RAILS UP X3. CALL LIGHT WITHIN REACH. WILL CONTINUE TO MONITOR.
--- NOTE | 2018-03-16 07:36 | NUR ---
RN MS CLOSING NOTES PATIENT REMAINS STABLE, ALERT ORIENTED X3, ABLE TO MAKE NEEDS KNOWN. BREATHING EVEN AND UNLABORED ON ROOM AIR, NO SOB. IV IN R FA #24G TKO. CONTINUES ON CONTACT ISOLATION FOR MRSA NARES. NO COMPLAINT OF PAIN OR DISCOMFORT AT THE TIME. WOUND DRESSING DONE. BED IN LOCKED POSITION, CALL LIGHT WITHIN REACH AT ALL TIMES. ENDORSED GONZALO TO AM RN
[2018-03-16 08:00] VITALS: BP 99/52
[2018-03-16 08:40] VITALS: BP 111/60
[2018-03-16] MEDS: VORICONAZOLE 200 MG TABLET PO SCH ×2 (09:00→20:10)
[2018-03-16] MEDS: FUROSEMIDE 20 MG TABLET PO SCH (09:00)
[2018-03-16] MEDS: ZINC SULFATE 220 MG CAPSULE PO SCH (09:01)
[2018-03-16] MEDS: ACIDOPHILUS/BULGARICUS 1 EACH TAB.CHEW PO SCH (09:01)
[2018-03-16] MEDS: ASCORBIC ACID 500 MG TABLET PO SCH (09:01)
[2018-03-16] MEDS: POTASSIUM CHLORIDE 20 MEQ TAB.PRT.SR PO SCH (09:01)
[2018-03-16] MEDS: GABAPENTIN 400 MG CAPSULE PO SCH ×3 (09:01→17:53)
[2018-03-16] MEDS: FENOFIBRATE NANOCRYS (145 MG) 145 MG TABLET PO SCH (09:01)
[2018-03-16] MEDS: CALCIUM CARB 250MG /VITAMIN D 1 UDTAB PO SCH (09:02)
[2018-03-16] MEDS: OXYBUTYNIN CHLORIDE 5 MG TABLET PO SCH ×3 (09:02→17:53)
[2018-03-16] MEDS: DOCUSATE SODIUM 100 MG CAPSULE PO SCH ×2 (09:02→17:52)
[2018-03-16] MEDS: MULTIVIT W/MINERALS 1 TAB TABLET PO SCH (09:02)
[2018-03-16] MEDS: BISACODYL SUPP (10 MG) 10 MG/SUPP.RECT SUPP.RECT RC SCH (09:04)
[2018-03-16] MEDS: CEFEPIME 2 GM in IV D5W 100 ML IV SCH ×2 (09:05→20:14)
[2018-03-16] MEDS: FLUTICASONE PROPIONATE 16 GM BOTTLE NS SCH (09:11)
[2018-03-16] MEDS: MENTHOL/CETYLPYRD (CEPACOL) 1 LOZ LOZENGE PO PRN ×2 (09:36→20:09)
[2018-03-16] MEDS: METOPROLOL TARTRATE 25 MG TABLET PO SCH ×2 (09:43→20:12)
--- NOTE | 2018-03-16 09:50 | NUR ---
MS/RN NOTE PATIENT IS ENCOURAGED TO TURN AND REPOSITION BUT THE PATIENT REFUSES. EXPLAINED RISKS AND BENEFITS. WILL CONTINUE TO ENCOURAGE
[2018-03-16 10:10] VITALS: BP 99/52
--- NOTE | 2018-03-16 10:10 | NUR ---
MS/RN NOTE LASIX 20 MG NOT ADMINISTERED DUE TO PATIENT`S BLOOD PRESSURE IS 99/52.
--- NOTE | 2018-03-16 10:12 | NUR ---
MS/RN NOTE FOLLOW UP CALLS ARE MADE TO PHARMACY TO DELIVER BACTORBAN OINT AND VFEND DUE AT 0900. WILL CONTINUE TO FOLLOW UP.
[2018-03-16] MEDS: MUPIROCIN OINT 2% 22 GM TUBE SCH ×2 (11:30→20:10)
--- NOTE | 2018-03-16 11:30 | NUR ---
MS/RN NOTE BACTROBAN IS ADMINISTERED LATE DUE TO PHARMACY LATE DELIVERY.
--- NOTE | 2018-03-16 14:51 | NUR ---
MS/RN NOTE VFEND DUE AT 0900 IS NOT ADMINISTERED DUE TO PHARMACY DELIVERED THE MEDICATION AT 1400 AND THE PATIENT REFUSED TO TAKE LATE. NEXT DOSE IS AT 2100.
[2018-03-16 16:00] VITALS: BP 129/79
--- NOTE | 2018-03-16 18:11 | NUR ---
MS/RN CLOSING NOTE THE PATIENT ALERT AND ORIENTED X3. IN ROOM AIR AND SATURATION IS AT 97%. DENIES SOB. DENIES PAIN. RFA G 22 PATENT AND SALINE LOCKED. TREATMENT DONE PER ORDER AND THE PATIENT TOLERATED IT WELL. GOOD AND GENTLE SKIN CARE RENDERED. KEPT CLEAN, DRY AND COMFORTABLE. ALL NEEDS ATTENDED AND ANTICIPATED. CALL LIGHT WITHIN REACH. BED LOW AND LOCKED. SIDE RAILS UP X3. WILL ENDORSE TO OPERATIONS TECHNICIAN.
--- NOTE | 2018-03-16 19:15 | NUR ---
MS RN OPENING NOTES RECEIVED PATIENT SITTING UP IN BED, WATCHING TV, ALERT, ORIENTED X 3. BREATHING EVEN AND UNLABORED, IN NO APPARENT DISTRESS. BEDSIDE RAILS ARE UPX2. BED IS LOCKED AND LOWERED. CALL LIGHT IS WITHIN REACH. IV LINE ON RFA G#22 INTACT AND PATENT. PATIENT STABLE ENDORSED BY THE MORNING RN. WILL CONTINUE TO MONITOR ACCORDINGLY.
[2018-03-16 20:00] VITALS: BP 118/80
[2018-03-17] MEDS: DAKINS QUARTER STRENGTH (0.125%) 480 ML BOTTLE TOP SCH ×2 (01:33→18:07)
[2018-03-17] MEDS: MENTHOL/CETYLPYRD (CEPACOL) 1 LOZ LOZENGE PO PRN (01:34)
--- NOTE | 2018-03-17 06:58 | NUR ---
RN MS CLOSING NOTES PATIENT REMAINS STABLE, ALERT ORIENTED X3, ABLE TO MAKE NEEDS KNOWN. BREATHING EVEN AND UNLABORED ON ROOM AIR, NO SOB. IV IN R FA #24G TKO. CONTINUES ON CONTACT ISOLATION FOR MRSA NARES. NO COMPLAINT OF PAIN OR DISCOMFORT AT THE TIME. WOUND DRESSING DONE. ALL NEEDS ATTENDED TO. ALL DUEMEDICATIONS GIVEN ORDERED. SAFETY MEASURES IN PLACE: BED IN LOCKED POSITION, CALL LIGHT WITHIN REACH AT ALL TIMES. WILL ENDORSE GONZALO TO AM NICOL
[2018-03-17 07:43] LABS: BASOPHILS # (AUTO) 0.1 /CMM (0.0-0.2); BASOPHILS % (AUTO) 0.8 % (0.0-2.0); EOSINOPHILS % (AUTO) 4.2 % (0.0-6.0); HEMATOCRIT 30 % (33-45); HEMOGLOBIN 9.8 g/dL (11.5-14.8); LYMPHOCYTES # (AUTO) 1.4 /CMM (0.8-4.8); LYMPHOCYTES % (AUTO) 19.7 % (20.0-44.0); MEAN CORPUSCULAR HGB CONC 32 g/dl (31.0-36.0); MEAN CORPUSCULAR VOLUME 79 fL (82-100); MONOCYTES # (AUTO) 0.9 /CMM (0.1-1.30); MONOCYTES % (AUTO) 12.3 % (2.0-12.0); NEUTROPHILS # (AUTO) 4.4 /CMM (1.8-8.9); PLATELET COUNT (AUTO) 393 /CMM (150-450); RED BLOOD CELL COUNT(AUTO) 3.83 MIL/uL (4.0-5.2)
[2018-03-17 08:05] LABS: CALCIUM, SERUM 8.6 mg/dL (8.5-10.1); CREATININE 0.6 mg/dL (0.6-1.3); POTASSIUM 3.9 mmol/L (3.5-5.1)
[2018-03-17 08:07] VITALS: BP 91/57
--- NOTE | 2018-03-17 08:10 | NUR ---
MS RN RECEIVE DON BED, AWAKE,ALERT,ORIENTED X3,NOT IN ANY FORM OF DISTRESS, RESPIRATIONS EVEN AND UNLABORED,NO SOB NOTED, EATING BREAKFAST AT THIS TIME, TOLERATED WELL. WILL MONITOR PATIENT.
[2018-03-17] MEDS: METOPROLOL TARTRATE 25 MG TABLET PO SCH ×2 (09:00→20:57)
--- NOTE | 2018-03-17 10:00 | NUR ---
ms rn refused dulcolax suppository, will offer again this pm.
--- NOTE | 2018-03-17 10:00 | NUR ---
ms rn due meds given,tolerated well.
[2018-03-17] MEDS: CEFEPIME 2 GM in IV D5W 100 ML IV SCH ×2 (10:09→20:56)
[2018-03-17] MEDS: VORICONAZOLE 200 MG TABLET PO SCH ×2 (10:10→20:58)
[2018-03-17] MEDS: MULTIVIT W/MINERALS 1 TAB TABLET PO SCH (10:11)
[2018-03-17] MEDS: POTASSIUM CHLORIDE 20 MEQ TAB.PRT.SR PO SCH (10:11)
[2018-03-17] MEDS: CALCIUM CARB 250MG /VITAMIN D 1 UDTAB PO SCH (10:11)
[2018-03-17] MEDS: ASCORBIC ACID 500 MG TABLET PO SCH (10:11)
[2018-03-17] MEDS: ZINC SULFATE 220 MG CAPSULE PO SCH (10:11)
[2018-03-17] MEDS: ACIDOPHILUS/BULGARICUS 1 EACH TAB.CHEW PO SCH (10:11)
[2018-03-17] MEDS: FENOFIBRATE NANOCRYS (145 MG) 145 MG TABLET PO SCH (10:12)
[2018-03-17] MEDS: OXYBUTYNIN CHLORIDE 5 MG TABLET PO SCH ×3 (10:12→18:04)
[2018-03-17] MEDS: GABAPENTIN 400 MG CAPSULE PO SCH ×3 (10:12→18:04)
[2018-03-17] MEDS: DOCUSATE SODIUM 100 MG CAPSULE PO SCH ×2 (10:12→18:04)
[2018-03-17] MEDS: FLUTICASONE PROPIONATE 16 GM BOTTLE NS SCH (10:14)
[2018-03-17] MEDS: FUROSEMIDE 20 MG TABLET PO SCH (10:15)
[2018-03-17] MEDS: MUPIROCIN OINT 2% 22 GM TUBE SCH ×2 (10:16→20:58)
[2018-03-17 16:02] VITALS: BP 114/70
--- NOTE | 2018-03-17 17:44 | NUR ---
ms rn on bed,no distress noted,all needs attended.
[2018-03-17] MEDS: BISACODYL SUPP (10 MG) 10 MG/SUPP.RECT SUPP.RECT RC SCH (18:04)
--- NOTE | 2018-03-17 19:50 | NUR ---
RN NOTES RECEIVED PATIENT SITTING UP IN BED, WATCHING TV, ALERT, ORIENTED X 3. BREATHING EVEN AND UNLABORED, IN NO APPARENT DISTRESS NOTED. ALL SAFETY MEASURES IN PLACE , BEDSIDE RAILS ARE UPX2. BED IS LOCKED AND LOWERED. CALL LIGHT WITHIN REACH. IV ACCESS ON RFA G#22 INTACT AND PATENT. WILL CONTINUE TO MONITOR ACCORDINGLY.
[2018-03-17 20:00] VITALS: BP 126/74
[2018-03-18] MEDS: DAKINS QUARTER STRENGTH (0.125%) 480 ML BOTTLE TOP SCH ×2 (02:24→17:56)
--- NOTE | 2018-03-18 07:04 | NUR ---
RN NOTES PATIENT REMAINS STABLE, ALERT ORIENTED X3, ABLE TO MAKE NEEDS KNOWN. BREATHING EVEN AND UNLABORED ON ROOM AIR, NO SOB. IV IN R FA #24G TKO. CONTINUES ON CONTACT ISOLATION FOR MRSA NARES. NO COMPLAINT OF PAIN OR DISCOMFORT AT THE TIME. WOUND DRESSING DONE. ALL NEEDS ATTENDED TO. ALL DUE MEDICATIONS GIVEN ORDERED. SAFETY MEASURES IN PLACE: BED IN LOW LOCKED POSITION, CALL LIGHT WITHIN REACH AT ALL TIMES. WILL ENDORSE TO AM NURSE FOR GONZALO.
--- NOTE | 2018-03-18 07:30 | NUR ---
RN OPENING NOTES PT WAS RECEIVED ON BED AT LOWEST AND LOCKED POSITION WITH SIDE RAILS UP X2, A/O X3, BREATHING EVEN AND UNLABORED ON RA, NO S/S OF PAIN OR DISTRESS NOTED, IV PATENT AND INTACT, SAFETY PRECAUTIONS IN PLACE, CALL LIGHT WITHIN REACH, WILL MONITOR ACCORDINGLY
[2018-03-18 08:00] VITALS: BP 93/62
[2018-03-18] MEDS: BISACODYL SUPP (10 MG) 10 MG/SUPP.RECT SUPP.RECT RC SCH (09:00)
[2018-03-18] MEDS: METOPROLOL TARTRATE 25 MG TABLET PO SCH ×2 (09:00→21:05)
--- NOTE | 2018-03-18 09:30 | NUR ---
MS NICOL BREAKFAST SERVED,DUE MEDS GIVEN BY STUDENT,TOLERATED WELL.
[2018-03-18] MEDS: GABAPENTIN 400 MG CAPSULE PO SCH ×3 (10:03→17:50)
[2018-03-18] MEDS: ZINC SULFATE 220 MG CAPSULE PO SCH (10:03)
[2018-03-18] MEDS: OXYBUTYNIN CHLORIDE 5 MG TABLET PO SCH ×3 (10:04→17:50)
[2018-03-18] MEDS: ACIDOPHILUS/BULGARICUS 1 EACH TAB.CHEW PO SCH (10:04)
[2018-03-18] MEDS: DOCUSATE SODIUM 100 MG CAPSULE PO SCH ×2 (10:04→17:50)
[2018-03-18] MEDS: CALCIUM CARB 250MG /VITAMIN D 1 UDTAB PO SCH (10:04)
[2018-03-18] MEDS: ASCORBIC ACID 500 MG TABLET PO SCH (10:04)
[2018-03-18] MEDS: POTASSIUM CHLORIDE 20 MEQ TAB.PRT.SR PO SCH (10:04)
[2018-03-18] MEDS: MULTIVIT W/MINERALS 1 TAB TABLET PO SCH (10:04)
[2018-03-18] MEDS: MENTHOL/CETYLPYRD (CEPACOL) 1 LOZ LOZENGE PO PRN (10:05)
[2018-03-18] MEDS: FLUTICASONE PROPIONATE 16 GM BOTTLE NS SCH (10:05)
[2018-03-18] MEDS: FENOFIBRATE NANOCRYS (145 MG) 145 MG TABLET PO SCH (10:05)
[2018-03-18] MEDS: VORICONAZOLE 200 MG TABLET PO SCH ×2 (10:05→17:50)
[2018-03-18] MEDS: CEFEPIME 2 GM in IV D5W 100 ML IV SCH ×2 (10:06→17:50)
[2018-03-18] MEDS: MUPIROCIN OINT 2% 22 GM TUBE SCH ×2 (10:07→21:06)
[2018-03-18] MEDS: FUROSEMIDE 20 MG TABLET PO SCH (10:50)
--- NOTE | 2018-03-18 10:50 | NUR ---
MS CAMARENA WAS SEEN BY LISA CALLAHAN W/ ORDERS MADE AND CARRIED OUT.
[2018-03-18 16:00] VITALS: BP 126/76
--- NOTE | 2018-03-18 17:07 | NUR ---
RN READY FOR DISCHARGE TO [facility], REPORT GIVEN TO CRISTINO CAMARENA, DRESSING TO LEFT BUTTOCKS DONE, ALL NEEDS ATTENDED.
--- NOTE | 2018-03-18 19:00 | NUR ---
MS RN OPENING NOTES Received patient A/O X4, on high-Francis's position on bed watching TV. Denies any discomfort at this time. On RA, no SOB/discomfort noted. On going IV ATB done. Disconnected IV line aseptically. Kept patient clean, dry and comfortable. Call light at bedside. [facility] Report given by AM shift NICOL Solomon. Will continue to monitor accordingly.
[2018-03-18 20:00] VITALS: BP 120/70
--- NOTE | 2018-03-18 20:10 | NUR ---
MS RN NOTES Called [facility] to follow up patient's transport trip #[id number]. Spoke with Anthony, per him trip was cancelled by Elizabeth. Reactivated the trip, ETA 2200.Patient notified of the ETA.
--- NOTE | 2018-03-18 20:46 | NUR ---
MS RN NOTES Patient claimed having pain on sacrum and asked for medication. Administered [place] as ordered. Will continue to monitor accordingly.
[2018-03-18 21:05] VITALS: BP 120/70
--- NOTE | 2018-03-18 22:15 | NUR ---
MS RN NOTES Followed up [facility], spoke to Anthony. ETA extended to another 30 mins due to coffee weigher are still wrapping up the previous trip.
--- NOTE | 2018-03-18 22:55 | NUR ---
MS RN NOTES Followed up [facility] for the 3rd time, per Anamaria, ambulance en route and will be in the facility in 5minutes.
--- NOTE | 2018-03-18 23:25 | NUR ---
MS SEARCH ENGINE OPTIMIZATION MANAGER NOTES Paramedics came 5 to pick remover patient. Patient asking why just at this time. Explained to patient that I am just giving the information I received from the [facility]. Per paramedics the information they got is pick remover @ 2300. Gave report and discharge papers to EMT. Patient left the unit via gurney assisted by 2 analysis evaluator. Patient left 2324.
== END 2018-03-18 23:25 | DRG 981 ==
LOC: ER 10:45 → MED 12:34
PROVIDERS: ADMIT Internal Medicine; ATTEND Nurse Practitioner Acute Care
PROC: 0QB30ZZ Excision of Left Pelvic Bone, Open Approach (ICD-10-PCS; principal; 2018-03-11)
PROC: 05H533Z Insertion of Infusion Device into Right Subclavian Vein, Percutaneous Approach (ICD-10-PCS; 2018-03-18)
PROC: B546ZZA Ultrasonography of Right Subclavian Vein, Guidance (ICD-10-PCS; 2018-03-18)
DX: L89.154 Pressure ulcer of sacral region, stage 4 (principal); E43 Unspecified severe protein-calorie malnutrition; L02.31 Cutaneous abscess of buttock; Z68.42 Body mass index [BMI] 45.0-49.9, adult; B37.49 Other urogenital candidiasis; G35 Multiple sclerosis; I10 Essential (primary) hypertension; G89.4 Chronic pain syndrome; J44.9 Chronic obstructive pulmonary disease, unspecified; R32 Unspecified urinary incontinence; L30.4 Erythema intertrigo; I48.0 Paroxysmal atrial fibrillation; E66.01 Morbid (severe) obesity due to excess calories; F17.210 Nicotine dependence, cigarettes, uncomplicated; D63.8 Anemia in other chronic diseases classified elsewhere; E78.5 Hyperlipidemia, unspecified; Z22.322 Carrier or suspected carrier of Methicillin resistant Staphylococcus aureus; B96.4 Proteus (mirabilis) (morganii) as the cause of diseases classified elsewhere; B96.20 Unspecified Escherichia coli [E. coli] as the cause of diseases classified elsewhere; L89.324 Pressure ulcer of left buttock, stage 4; K21.9 Gastro-esophageal reflux disease without esophagitis; N32.81 Overactive bladder; Z66 Do not resuscitate; Z74.01 Bed confinement status; Z99.3 Dependence on wheelchair; K44.9 Diaphragmatic hernia without obstruction or gangrene; J30.2 Other seasonal allergic rhinitis; Z88.5 Allergy status to narcotic agent; G62.9 Polyneuropathy, unspecified; D50.9 Iron deficiency anemia, unspecified
CPT/HCPCS: 36415; 71045-TC; 80048-TC; 80076-TC; 81000-TC; 83605-TC; 83735-TC; 84100-TC; 85025-TC; 85652-TC; 85730-TC; 86140-TC; 87040-TC; 87070-TC; 87075-TC; 87081-TC; 87086-TC; 87186-TC; A4216; A6253; A6402; A6403; G0378; J0690; J0692; J2250; J2543; J2704; J2765; J3010; J7030; J7050; J7060; Q9967

== ENCOUNTER 2018-06-20 10:15 | Outpatient (CLI) | payer MEDICARE, MEDICAID ==
[~2018-06-20 10:15] MED LIST: ACET-868 PO; ACID1TAB12 PO; ASCO500T8 PO; BISA10SU8 RC; CALC-7 PO; DOCU-141 PO; FENO160T PO; FLUT16SP BNOSTRILS; FURO-145 PO; GABA800T11 PO; INTE0.3K3 SQ; MAGN400O6 PO; METO25TA20 PO; MULT-447 PO; OXYB5TAB11 PO; OXYC-128 PO; POTA20TA83 PO; TRAM50TA2 PO; ZINC220C8 PO
[2018-07-20] MEDS ORDERED: PHYT10AM SQ (14:15)
[2018-07-20] MEDS ORDERED: MUPI22OI7 (14:15)
[2018-07-20] MEDS ORDERED: METH1000 IV (14:15)
[2018-07-20] MEDS ORDERED: LINE600T PO (14:15)
[2018-07-20] MEDS ORDERED: LEVO500T2 PO (14:15)
== END 2018-06-20 23:59 | disposition home or self-care (01) ==
LOC: WOU 10:15
PROVIDERS: ATTEND Surgery
DX: S31.829A Unspecified open wound of left buttock, initial encounter (principal); M86.9 Osteomyelitis, unspecified; G35 Multiple sclerosis; E66.9 Obesity, unspecified; Z68.29 Body mass index [BMI] 29.0-29.9, adult; X58.XXXA Exposure to other specified factors, initial encounter; Y92.89 Other specified places as the place of occurrence of the external cause; Z79.899 Other long term (current) drug therapy
CPT/HCPCS: 11044

== ENCOUNTER 2018-06-29 11:54 | Inpatient (IN) | payer MEDICARE, MEDICAID ==
[~2018-06-29] VITALS: Ht 170.2 cm; Wt 98.4 kg
--- NOTE | 2018-06-29 13:40 | NUR ---
MS/RN Patient received Patient received from [facility] via ambulance, scheduled for surgery tomorrow with Dr Barraza and Dr Mills. Dr Thomas called for admitting orders.
--- NOTE | 2018-06-29 13:52 | NUR ---
MS/RN Orders Dr Thomas aware that patient is admitted into room 203, order given to continue home medications. Pre op orders entered, awaiting med recon nurse.
--- NOTE | 2018-06-29 14:00 | NUR ---
PICTURE OF WOUND TAKEN AND PLACED IN THE CHART. PATIENT REFUSED DRESSING , STATES SHE WILL HAVE SURGERY AT 0730, SHE WANTS IT OPEN
[2018-06-29 14:57] LABS: BASOPHILS # (AUTO) 0.1 /CMM (0.0-0.2); BASOPHILS % (AUTO) 0.9 % (0.0-2.0); EOSINOPHILS % (AUTO) 3.3 % (0.0-6.0); HEMATOCRIT 36 % (33-45); HEMOGLOBIN 11.5 g/dL (11.5-14.8); LYMPHOCYTES # (AUTO) 1.8 /CMM (0.8-4.8); LYMPHOCYTES % (AUTO) 27.3 % (20.0-44.0); MEAN CORPUSCULAR HGB CONC 32 g/dl (31.0-36.0); MEAN CORPUSCULAR VOLUME 78 fL (82-100); MONOCYTES # (AUTO) 0.7 /CMM (0.1-1.30); MONOCYTES % (AUTO) 10.4 % (2.0-12.0); NEUTROPHILS # (AUTO) 3.9 /CMM (1.8-8.9); NEUTROPHILS % (AUTO) 58.1 % (43.0-81.0); PLATELET COUNT (AUTO) 281 /CMM (150-450); RED BLOOD CELL COUNT(AUTO) 4.64 MIL/uL (4.0-5.2); WHITE BLOOD COUNT (AUTO) 6.7 K/uL (4.3-11.0)
[2018-06-29] MEDS ORDERED: CRAN425C6 PO (15:01)
[2018-06-29] MEDS ORDERED: CALC-883 PO (15:01)
[2018-06-29] MEDS ORDERED: CRAN3875 PO (15:01)
[2018-06-29] MEDS ORDERED: MELA3TAB PO (15:01)
[2018-06-29 15:16] LABS: CALCIUM, SERUM 8.8 mg/dL (8.5-10.1); CREATININE 0.6 mg/dL (0.6-1.3); POTASSIUM 4.1 mmol/L (3.5-5.1)
[2018-06-29] MEDS ORDERED: BETASERON SQ SCH (16:00)
[2018-06-29] MEDS ORDERED: BISACODYL SUPP (10 MG) 10 MG/SUPP.RECT SUPP.RECT RC PRN (16:00)
[2018-06-29] MEDS ORDERED: ACETAMINOPHEN 325 MG TABLET PO PRN (16:00)
[2018-06-29] MEDS ORDERED: MAGNESIUM HYDROXIDE 30 ML UDC PO PRN (16:00)
[2018-06-29] MEDS: oxyCODONE/APAP (5/325 MG) 1 UDTAB TABLET PO PRN ×2 (16:39→21:08)
[2018-06-29] MEDS: GABAPENTIN 400 MG CAPSULE PO SCH (16:39)
[2018-06-29] MEDS: DOCUSATE SODIUM 100 MG CAPSULE PO SCH (16:40)
[2018-06-29] MEDS: METOPROLOL TARTRATE 25 MG TABLET PO SCH (16:40)
[2018-06-29] MEDS: OXYBUTYNIN CHLORIDE 5 MG TABLET PO SCH (16:41)
--- NOTE | 2018-06-29 19:32 | NUR ---
MS RN RECEIVE PT IN BED A/O X 3, RESPIRATIONS EVEN AND UNLABORED, NO SOB NOTED, NO DISTRESS, SAFETY MEASURES IN PLACE. WILL CONTINUE TO MONITOR.
[2018-06-29 20:00] VITALS: BP 107/64
[2018-06-29 20:30] VITALS: BP 107/64
[2018-06-30] VITALS (11 sets, daily range): BP systolic 100–140; BP diastolic 50–77
--- NOTE | 2018-06-30 06:01 | NUR ---
MS RN ASLEEP AND EASILY AWAKEN, RESPIRATION EVEN AND UNLABORED, STABLE AND NOT IN DISTRESS, NEEDS ATTENDED AND ANTICIPATED, KEPT CLEAN AND DRY AND COMFORTABLE. NURSING CARE RENDERED, REPOSITIONED PT EVERY 2 HOURS AND PRN. GOOD SKIN CARE, OFFLOAD HEELS AND ELBOWS AT ALL TIMES. MAINTAINS NPO DURING MIDNIGHT AND PER BAR TENDER ERIN GUERRERO, FOR SURGERY TODAY. SAFETY MEASURES AT ALL TIMES. ENDORSE TO THE NEXT SHIFT.
--- NOTE | 2018-06-30 06:58 | NUR ---
SPOKE TO KASSANDRA TO FF UP MRSA NARES HOG TRADER SPECIMEN IN THE LAB FRIDGE
[2018-06-30] MEDS ORDERED: DESFLURANE 240 ML BOTTLE IH ONE (07:05)
[2018-06-30] MEDS ORDERED: BUPIVACAINE 0.5 % PF 150 MG/30 ML VIAL ONE (07:06)
[2018-06-30] MEDS ORDERED: LIDOCAINE HCL/PF 1% 30 ML SDV ONE (07:06)
[2018-06-30] MEDS ORDERED: BUPIVACAINE MPF 0.5% W/EPI INJ 30 ML VIAL ONE (07:06)
--- NOTE | 2018-06-30 07:17 | NUR ---
MS/RN OPENING NOTE THE PATIENT WAS ALREADY TAKEN TO OR WHEN RECEIVED REPORT FROM LOAN SPECIALIST.
[2018-06-30] MEDS ORDERED: METHYLENE BLUE 10 ML VIAL ONE (08:08)
[2018-06-30] MEDS: OXYBUTYNIN CHLORIDE 5 MG TABLET PO SCH ×3 (08:50→18:16)
[2018-06-30] MEDS: GABAPENTIN 400 MG CAPSULE PO SCH ×3 (08:50→18:16)
[2018-06-30] MEDS: FUROSEMIDE 20 MG TABLET PO SCH (08:50)
[2018-06-30] MEDS: DOCUSATE SODIUM 100 MG CAPSULE PO SCH ×2 (08:50→18:17)
[2018-06-30] MEDS: POTASSIUM CHLORIDE 20 MEQ TAB.PRT.SR PO SCH (08:50)
[2018-06-30] MEDS: METOPROLOL TARTRATE 25 MG TABLET PO SCH ×2 (08:50→18:16)
[2018-06-30] MEDS: CALCIUM CARB 250MG /VITAMIN D 1 UDTAB PO SCH (08:51)
[2018-06-30] MEDS: ACETAMINOPHEN 325 MG TABLET PO SCH (08:51)
[2018-06-30] MEDS: ASCORBIC ACID 500 MG TABLET PO SCH (08:51)
[2018-06-30] MEDS: FENOFIBRATE NANOCRYS (145 MG) 145 MG TABLET PO SCH (08:51)
[2018-06-30] MEDS: FLUTICASONE PROPIONATE 16 GM BOTTLE NS SCH (08:52)
--- NOTE | 2018-06-30 08:52 | NUR ---
MS/RN NOTE FLONASE DUE AT 0900 NOT ADMINISTERED DUE TO PATIENT BEING IN OR.
[2018-06-30] MEDS ORDERED: MULTIVIT W/MINERALS 1 TAB TABLET PO SCH (09:00)
--- NOTE | 2018-06-30 10:05 | NUR ---
MS/RN NOTE THE PATIENT IS BACK FROM OR IN A GURNEY. PATIENT AWAKE, ALERT AND ORIENTED X3. DENIES PAIN. RESPIRATION REGULAR AND UNLABORED. DENIES SOB. THE PATIENT IS NOTED TO HAVE BENTON DRAIN ON LEFT ISCHIAL WOUND WITH 10 ML OF SEROUS OUTPUT. DRESSING IN PLACE WITH NO STRIKE THRU. BED LOW AND LOCKED. SIDE RAILS UP X3. WILL CONTINUE TO MONITOR.
[2018-06-30] MEDS: ENSURE ENLIVE CHOC 237 ML CAN PO SCH ×2 (14:00→18:23)
[2018-06-30] MEDS: MULTIVITAMINS,THERAGRAN 1 UDTAB TABLET PO SCH (14:51)
--- NOTE | 2018-06-30 16:20 | NUR ---
Patient is alert and pleasant,resides at [facility] [phone]. Currently on bedhold with patient plan to return to SNF on discharge. Addendum: 06/30/18 at 1620 by NIKI SINGH RN Amended: Links added.
--- NOTE | 2018-06-30 18:58 | NUR ---
MS/RN NOTE THE PATIENT ALERT AND ORIENTED X3. IN ROOM AIR AND SATURATION IS AT 96%. DENIES SOB. RESPIRATION REGULAR AND UNLABORED. DENIES PAIN. THE PATIENT IN NO APPARENT DISTRESS. BENTON DRAINED 50 ML SEROUS OUTPUT FROM LEFT ISCHIAL WOUND. DRESSING INTACT AND NO STRIKE TRUE. BED LOW AND LOCKED. SCD ON. SIDE RAILS UP X3. CALL LIGHT WITHIN REACH. WILL ENDORSE TO ASSISTANT PROFESSOR IN FAMILY STUDIES.
--- NOTE | 2018-06-30 19:45 | NUR ---
RN OPENING NOTES RECEIVED REPORT FROM DAYSHIFT RN PAYAL. FOUND Pt AWAKE, RESTING IN BED. NO S/S OF ACUTE DISTRESS OR SOB NOTED. Pt IS A/OX3, VERBAL, ABLE TO MAKE NEEDS KNOW. RESPIRATIONS ARE EVEN AND UNLABORED. IV ACCESS ON RWRIST #22G, SL. SAFETY MEASURES IN PLACE. BED LOW, LOCKED, HOB ELEVATED, SIDE RAILS UP, CALL LIGHT AND BEDSIDE TABLE WITHIN REACH. WILL CONTINUE TO MONITOR Pt's CONDITION AND SAFETY THROUGHOUT THE NIGHT.
--- NOTE | 2018-06-30 20:45 | NUR ---
RN NOTES Pt REFUSED TO BE CHANGED AT THIS TIME. WISHED TO BE LEFT ALONE SO THAT SHE CAN GET SOME SLEEP FOR TONIGHT.
--- NOTE | 2018-07-01 05:45 | NUR ---
RN NOTES MRSA SWAB COLLECTED. R NARE. PLACED IN FRIDGE.
[2018-07-01] MEDS: TRAMADOL HCL 50 MG TABLET PO PRN (05:50)
--- NOTE | 2018-07-01 06:32 | NUR ---
RN CLOSING NOTES NO SIGNIFICANT CHANGES IN Pt's CONDITION. Pt REMAINS STABLE AT THIS TIME. NO S/S OF ACUTE DISTRESS OR SOB NOTED DURING THE NIGHT. ALL NEEDS MET AND ATTENDED TO. ALL ORDERED MEDS GIVEN. Pt IS RESTING COMFORTABLY IN BED. RESPIRATIONS EVEN AND UNLABORED. SAFETY MEASURES IN PLACE. WILL ENDORSE TO DAYSHIFT RN FOR Pt's GONZALO.
--- NOTE | 2018-07-01 07:00 | NUR ---
RN NOTES BENTON DRAIN OUTPUT 25CC.
[2018-07-01 08:00] VITALS: BP 94/63
--- NOTE | 2018-07-01 08:04 | NUR ---
MS/RN OPENING NOTE PATIENT IN BED IN STABLE CONDITION. A/O X 3. NO SIGNS OF ACUTE DISTRESS. NO COMPLAIN OF PAIN OR DISCOMFORT. S/P RIGHT ISCHIAL DEBRIDEMENT TOLERATING WELL. BENTON DRAIN IN PLACE DRAINING WELL NOTED WITH SEROSANGUINEOUS FLUID. ALL NEEDS ATTENDED TO. CALL LIGHT WITHIN REACH. WILL CONTINUE TO MONITOR TO ENSURE SAFETY.
[2018-07-01] MEDS: FUROSEMIDE 20 MG TABLET PO SCH (08:40)
[2018-07-01] MEDS: METOPROLOL TARTRATE 25 MG TABLET PO SCH ×2 (08:41→16:49)
[2018-07-01] MEDS: FLUTICASONE PROPIONATE 16 GM BOTTLE NS SCH (08:44)
[2018-07-01] MEDS: OXYBUTYNIN CHLORIDE 5 MG TABLET PO SCH ×3 (08:45→16:48)
[2018-07-01] MEDS: MULTIVITAMINS,THERAGRAN 1 UDTAB TABLET PO SCH (08:45)
[2018-07-01] MEDS: ACETAMINOPHEN 325 MG TABLET PO SCH (08:45)
[2018-07-01] MEDS: DOCUSATE SODIUM 100 MG CAPSULE PO SCH ×2 (08:45→16:48)
[2018-07-01] MEDS: ENSURE ENLIVE CHOC 237 ML CAN PO SCH ×3 (08:45→16:49)
[2018-07-01] MEDS: ASCORBIC ACID 500 MG TABLET PO SCH (08:45)
[2018-07-01] MEDS: CALCIUM CARB 250MG /VITAMIN D 1 UDTAB PO SCH (08:45)
[2018-07-01] MEDS: FENOFIBRATE NANOCRYS (145 MG) 145 MG TABLET PO SCH (08:45)
[2018-07-01] MEDS: GABAPENTIN 400 MG CAPSULE PO SCH ×3 (08:45→16:48)
[2018-07-01] MEDS: POTASSIUM CHLORIDE 20 MEQ TAB.PRT.SR PO SCH (08:46)
--- NOTE | 2018-07-01 12:00 | NUR ---
MS/RN PER WOUND LICENSED NURSE PRACTITIONER ERIN GUERRERO CARSON CATH INSERTED SECONDARY TO LEFT ISCHIAL SURGICAL WOUND. TOLERATED WELL.
[2018-07-01] MEDS: oxyCODONE/APAP (5/325 MG) 1 UDTAB TABLET PO PRN ×2 (13:14→17:30)
[2018-07-01 16:00] VITALS: BP 104/68
--- NOTE | 2018-07-01 18:33 | NUR ---
MS/RN CLOSING NOTE PATIENT IN BED IN STABLE CONDITION. A/O X 3. NO SIGNS OF ACUTE DISTRESS. NO COMPLAIN OF PAIN OR DISCOMFORT. ALL NEEDS ATTENDED TO. CALL LIGHT WITHIN REACH. WILL ENDORSE TO NEXT SHIFT FOR CONTINUITY OF CARE.
[2018-07-01 19:06] LABS: APPEARANCE,URINE SL CLOUDY (CLEAR); BILIRUBIN,URINE NEGATIVE (NEGATIVE); BLOOD, URINE NEGATIVE Ery/uL (NEGATIVE); COLOR,URINE YELLOW (YELLOW); KETONES,URINE NEGATIVE (NEGATIVE); LEUKOCYTE ESTERASE ,URINE 3+ (NEGATIVE); NITRITE, URINE POSITIVE (NEGATIVE); PH,URINE 6.5 (5.0-8.0); PROTEIN,URINE NEGATIVE (NEGATIVE); UGLUCOSE NEGATIVE (NEGATIVE); UROBILINOGEN,URINE 0.2 EU/dL (0.2)
[2018-07-01 19:56] LABS: RBC,URINE 0-2 /HPF (0-2)
[2018-07-01 19:57] LABS: BACTERIA,URINE Moderate /HPF (None Seen); SQUAMOUS EPITHELIAL CELL,UR Moderate /HPF (None Seen)
[2018-07-01 19:58] LABS: WBC,URINE 21-50 /HPF (0-3); YEAST,URINE Moderate /HPF (None Seen)
[2018-07-01 20:00] VITALS: BP 118/68
--- NOTE | 2018-07-01 22:00 | NUR ---
MS/RN SUCCESSFULLY INSERTED NEW IV AT LEFT F/A G22.
--- NOTE | 2018-07-01 22:56 | NUR ---
MS/RN IV NOT FLUSHING, REMOVED AND ATTEMPTED TO INSERT NEW IV X 2 BUT UNSUCCESSFUL. WILL TRY AGAIN LATER.
--- NOTE | 2018-07-01 23:45 | NUR ---
MS/RN PATIENT IS SLEEPING AT THIS TIME, AROUSABLE, APPEAR COMFORTABLE, NO DISTRESS NOTED, CALL LIGHT IN REACH. WILL CONTINUE TO MONITOR.
--- NOTE | 2018-07-02 06:28 | NUR ---
MS/RN PATIENT IS SLEEPING AT THIS TIME, APPEAR COMFORTABLE, NO DISTRESS NOTED, ALL NEEDS ATTENDED AT THIS TIME, WILL CONTINUE TO MONITOR.
[2018-07-02 06:34] LABS: BASOPHILS % (AUTO) 0.5 % (0.0-2.0); EOSINOPHILS % (AUTO) 2.3 % (0.0-6.0); HEMATOCRIT 33 % (33-45); HEMOGLOBIN 10.6 g/dL (11.5-14.8); LYMPHOCYTES # (AUTO) 1.5 /CMM (0.8-4.8); LYMPHOCYTES % (AUTO) 18.8 % (20.0-44.0); MEAN CORPUSCULAR HGB CONC 32 g/dl (31.0-36.0); MEAN CORPUSCULAR VOLUME 78 fL (82-100); MONOCYTES # (AUTO) 0.8 /CMM (0.1-1.30); MONOCYTES % (AUTO) 9.7 % (2.0-12.0); NEUTROPHILS # (AUTO) 5.3 /CMM (1.8-8.9); NEUTROPHILS % (AUTO) 68.7 % (43.0-81.0); PLATELET COUNT (AUTO) 252 /CMM (150-450); WHITE BLOOD COUNT (AUTO) 7.8 K/uL (4.3-11.0)
[2018-07-02 07:00] LABS: CALCIUM, SERUM 8.8 mg/dL (8.5-10.1); CREATININE 0.5 mg/dL (0.6-1.3); MAGNESIUM 1.9 mg/dL (1.8-2.4); PHOSPHORUS 2.1 mg/dL (2.5-4.9); POTASSIUM 3.9 mmol/L (3.5-5.1)
--- NOTE | 2018-07-02 07:31 | NUR ---
MS/RN OPENING NOTE PATIENT IN BED IN STABLE CONDITION. A/O X 3. NO SIGNS OF ACUTE DISTRESS. NO COMPLAIN OF PAIN OR DISCOMFORT. NOTED WITH BENTON DRAIN TO LEFT ISCHIAL SURGICAL WOUND. TOLERATING WELL. ALL NEEDS ATTENDED TO. CALL LIGHT WITHIN REACH. WILL CONTINUE TO MONITOR TO ENSURE SAFETY.
[2018-07-02 08:00] VITALS: BP 114/57
[2018-07-02] MEDS: ENSURE ENLIVE CHOC 237 ML CAN PO SCH ×3 (08:29→16:49)
[2018-07-02] MEDS: DOCUSATE SODIUM 100 MG CAPSULE PO SCH ×2 (08:29→16:49)
[2018-07-02] MEDS: FLUTICASONE PROPIONATE 16 GM BOTTLE NS SCH (08:29)
[2018-07-02] MEDS: ASCORBIC ACID 500 MG TABLET PO SCH (08:29)
[2018-07-02] MEDS: CALCIUM CARB 250MG /VITAMIN D 1 UDTAB PO SCH (08:29)
[2018-07-02] MEDS: OXYBUTYNIN CHLORIDE 5 MG TABLET PO SCH ×3 (08:29→16:48)
[2018-07-02] MEDS: POTASSIUM CHLORIDE 20 MEQ TAB.PRT.SR PO SCH (08:29)
[2018-07-02] MEDS: ACETAMINOPHEN 325 MG TABLET PO SCH (08:30)
[2018-07-02] MEDS: METOPROLOL TARTRATE 25 MG TABLET PO SCH ×2 (08:30→16:47)
[2018-07-02] MEDS: FUROSEMIDE 20 MG TABLET PO SCH (08:30)
[2018-07-02] MEDS: GABAPENTIN 400 MG CAPSULE PO SCH ×3 (08:30→16:49)
[2018-07-02] MEDS: MULTIVITAMINS,THERAGRAN 1 UDTAB TABLET PO SCH (08:30)
[2018-07-02] MEDS: FENOFIBRATE NANOCRYS (145 MG) 145 MG TABLET PO SCH (08:30)
[2018-07-02] MEDS: FLUCONAZOLE IN NS 100 MG in PREMIX 1 EA IV SCH ×2 (10:24)
[2018-07-02] MEDS: CEFTRIAXONE 1 G in IV D5W 50 ML IV SCH (10:24)
[2018-07-02] MEDS ORDERED: K PHOS NEUTRAL 250 MG TABLET PO ONE (13:30)
[2018-07-02 16:00] VITALS: BP 97/61
--- NOTE | 2018-07-02 17:56 | NUR ---
MS/RN SPOKE WITH DR DE PAZ AND NOTIFIED PATIENT MRSA NARES RESULTS POSITIVE WITH ORDERS TO START BACTROBAN OINT Q 12 HRS FOR 7 DAYS AND CONTACT ISOLATION . NOTED AND CARRIED OUT. PATIENT NOTIFIED.
--- NOTE | 2018-07-02 18:20 | NUR ---
MS/RN CLOSING NOTE PATIENT IN BED IN STABLE CONDITION. A/O X 3. NO SIGNS OF ACUTE DISTRESS. NO COMPLAIN OF PAIN OR DISCOMFORT. BENTON DRAIN TO LEFT ISCHIAL SURGICAL WOUND SITE, DRAINING WELL. AL NEEDS ATTENDED TO. CALL LIGHT WITHIN REACH. WILL ENDORSE TO NEXT SHIFT FOR CONTINUITY OF CARE.
[2018-07-02] MEDS ORDERED: ACETAMINOPHEN ES 500 MG TABLET PO PRN (18:30)
--- NOTE | 2018-07-02 19:05 | NUR ---
CHANGE OF SHIFT REPORT Received patient in bed, awake A/O x3. Left ischial wound with BENTON drain, output minimal, dressing C/D/I, denies pain. Stable oxygen saturation on RA. Contact precaution, PPE utilized. Maintained safety, will cont to monitor.
[2018-07-02 20:00] VITALS: BP 103/59
[2018-07-02] MEDS: MUPIROCIN OINT 2% 22 GM TUBE SCH (20:44)
--- NOTE | 2018-07-03 06:25 | NUR ---
END OF SHIFT REPORT Patient in bed, stable oxygen saturation on RA. Left buttock/Ischial wound dressing C/D/I, dressing changed this shift. BENTON drain minimal output, denies pain. On IV antibiotic as scheduled, afebrile. No acute events overnight. On contact isolation, PPE utilized. Place call light within reach, safety measure explained, verbalized understanding.
--- NOTE | 2018-07-03 07:30 | NUR ---
MS RN OPENING NOTE RECEIVED PATIENT IN BED. ALERT ORIENTED X4. ON ROOM AIR, TOLERATING WELL. IN NO APPARENT DISTRESS OR DISCOMFORT AT THIS TIME. RESPIRATIONS EVEN AND UNLABORED. DENIES PAIN AND SOB. ABLE TO COMMUNICATE NEEDS. LEFT FA IVC, SL, PATENT AND INTACT. CARSON CATHETER IN PLACE, DRAINING CLEAR YELLOW URINE, BENTON RAIN IN PLACE. PATIENT KEPT CLEAN AND COMFORTABLE. ALL NEEDS ATTENDED, SAFETY MEASURES IN PLACE, BED IN LOW LOCKED POSITION, SIDE RAILS UP X2, CALL LIGHT WITHIN EASY REACH. WILL CONTINUE TO MONITOR.
[2018-07-03 08:00] VITALS: BP 119/68
[2018-07-03] MEDS: GABAPENTIN 400 MG CAPSULE PO SCH ×3 (08:22→16:23)
[2018-07-03] MEDS: ASCORBIC ACID 500 MG TABLET PO SCH (08:22)
[2018-07-03] MEDS: OXYBUTYNIN CHLORIDE 5 MG TABLET PO SCH ×3 (08:22→16:22)
[2018-07-03] MEDS: MULTIVITAMINS,THERAGRAN 1 UDTAB TABLET PO SCH (08:22)
[2018-07-03] MEDS: CALCIUM CARB 250MG /VITAMIN D 1 UDTAB PO SCH (08:22)
[2018-07-03] MEDS: FLUTICASONE PROPIONATE 16 GM BOTTLE NS SCH (08:22)
[2018-07-03] MEDS: FUROSEMIDE 20 MG TABLET PO SCH (08:22)
[2018-07-03] MEDS: METOPROLOL TARTRATE 25 MG TABLET PO SCH ×2 (08:23→16:22)
[2018-07-03] MEDS: POTASSIUM CHLORIDE 20 MEQ TAB.PRT.SR PO SCH (08:23)
[2018-07-03] MEDS: FENOFIBRATE NANOCRYS (145 MG) 145 MG TABLET PO SCH (08:24)
[2018-07-03] MEDS: ACETAMINOPHEN 325 MG TABLET PO SCH (08:24)
[2018-07-03] MEDS: DOCUSATE SODIUM 100 MG CAPSULE PO SCH ×2 (08:24→16:22)
[2018-07-03] MEDS: ENSURE ENLIVE CHOC 237 ML CAN PO SCH ×3 (08:33→16:32)
[2018-07-03] MEDS: MUPIROCIN OINT 2% 22 GM TUBE SCH ×2 (08:33→21:30)
[2018-07-03] MEDS: FLUCONAZOLE IN NS 100 MG in PREMIX 1 EA IV SCH ×2 (09:15)
[2018-07-03] MEDS: CEFTRIAXONE 1 G in IV D5W 50 ML IV SCH (10:29)
[2018-07-03 16:00] VITALS: BP_SYST 115; BP_SYST 119; BP_DIAS 68; BP_DIAS 73
--- NOTE | 2018-07-03 19:00 | NUR ---
2000 ML OF URINE WAS DRAINED WITHIN ONE HOUR. STRAIGHT CATHETER IS STILL IN PLACE, CLAMPED TO DRAIN SLOWLY. WILL ENDORSE TO SHOE TREER TO CONTINUE DRAINING AND MONITORING. Addendum: 07/03/18 at 1914 by WILLIAM HUNT RN WRONG PATIENT. ERROR.
--- NOTE | 2018-07-03 19:19 | NUR ---
MS RN CLOSING NOTE PATIENT IN BED. ALERT ORIENTED X4. ON ROOM AIR, TOLERATING WELL. IN NO APPARENT DISTRESS OR DISCOMFORT AT THIS TIME. RESPIRATIONS EVEN AND UNLABORED. DENIES PAIN AND SOB. ABLE TO COMMUNICATE NEEDS. LEFT FA IVC, SL, PATENT AND INTACT. CARSON CATHETER IN PLACE, DRAINING CLEAR YELLOW URINE, BENTON RAIN IN PLACE DRAINING BLOOD TINGED FLUID. PATIENT KEPT CLEAN AND COMFORTABLE. ALL NEEDS ATTENDED, ORDERS RENDERED, TURNED AND REPOSITIONED PER PROTOCOL, TO THE BACK AND RIGHT SIDE ONLY ORDERED. SAFETY MEASURES IN PLACE, BED IN LOW LOCKED POSITION, SIDE RAILS UP X2, CALL LIGHT WITHIN EASY REACH. WILL ENDORSE TO PM NURSE FOR GONZALO.
--- NOTE | 2018-07-03 19:30 | NUR ---
RN INITIAL NOTES: RECEIVED REPORT FROM WILLIAM CAMARENA. PT IN BED, FAMILY AT BED SIDE. PT DENIES ANY PAIN OR DISCOMFORT AT THIS TIME. IV ACCESS PATENT AND FLUSHING WELL, ON HL. BLE OFFLOADED. BENTON DRAIN IN PLACED. ON MRSA ISOLATION. PPE UTILIZED. SCD IN USED. OFFERED LAXATIVE TO HELP IN BOWEL REGIMEN BUT PT REFUSED, OFFERED WARM PRUNE JUICE BUT PT REFUSED. EDUCATION PROVIDED TO PT. SAFETY PRECAUTIONS FOR FALL INITIATED, CALL LIGHT IN REACH, WILL CONTINUE MONITORING PT.
[2018-07-03 20:00] VITALS: BP 129/78
--- NOTE | 2018-07-03 22:00 | NUR ---
RN NOTES: DRESSING CHANGED PERFORMED WITH HELP OF ANOTHER RN RVI. PT TOLERATED PROCEDURE WELL.
--- NOTE | 2018-07-04 00:06 | NUR ---
RN NOTES: SLEEPING COMFORTABLY AT THIS TIME, RESPIRATION EVEN AND UNLABORED
--- NOTE | 2018-07-04 01:00 | NUR ---
RN NOTES: PERFORMED ANOTHER BLADDER SCAN, OBTAINED RESULT OF 200ML, WILL CONTINUE TO MONITOR Addendum: 07/04/18 at 0135 by BLAZE STORY RN CORRECTION OF ENTRY: DISREGARD ABOVE DOCUMENTATION, WRONG PATIENT
--- NOTE | 2018-07-04 06:42 | NUR ---
RN CLOSING NOTES: PT ON RA, DENIES ANY PAIN OR DISCOMFORT AT THIS TIME. BENTON MEADOWS IN PLACED, DRAINED A TOTAL OF 30 ML. DRESSING ON LEFT LEFT ISCHIAL AREA REMAINS C/D/I, NO ACTIVE BLEEDING NOTED. CARSON BAG EMPTIED. BLE OFFLOADED, SCD REMAINS IN USED. IV ACCESS REMAINS PATENT AND FLUSHING WELL, ON HL. PPE UTILIZED PT ON ISOLATION. VS REMAINS STABLE, NEEDS ATTENDED. SAFETY PRECAUTIONS FOR FALL REMAINS ENGAGED, CALL LIGHT IN REACH, WILL ENDORSE TO DAY FOR CONTINUITY OF CARE.
--- NOTE | 2018-07-04 07:30 | NUR ---
MS/RN Patient received Patient received from production shift supervisor. A/O X3, vital signs within normal range, denies pain or discomfort. All needs addressed, will continue to monitor and ensure safety.
[2018-07-04 08:00] VITALS: BP 105/64
[2018-07-04] MEDS: POTASSIUM CHLORIDE 20 MEQ TAB.PRT.SR PO SCH (08:23)
[2018-07-04] MEDS: CALCIUM CARB 250MG /VITAMIN D 1 UDTAB PO SCH (08:23)
[2018-07-04] MEDS: OXYBUTYNIN CHLORIDE 5 MG TABLET PO SCH ×3 (08:23→16:43)
[2018-07-04] MEDS: MULTIVITAMINS,THERAGRAN 1 UDTAB TABLET PO SCH (08:23)
[2018-07-04] MEDS: FUROSEMIDE 20 MG TABLET PO SCH (08:23)
[2018-07-04] MEDS: ASCORBIC ACID 500 MG TABLET PO SCH (08:23)
[2018-07-04] MEDS: FENOFIBRATE NANOCRYS (145 MG) 145 MG TABLET PO SCH (08:23)
[2018-07-04] MEDS: DOCUSATE SODIUM 100 MG CAPSULE PO SCH ×2 (08:23→16:43)
[2018-07-04] MEDS: ACETAMINOPHEN 325 MG TABLET PO SCH (08:23)
[2018-07-04] MEDS: FLUTICASONE PROPIONATE 16 GM BOTTLE NS SCH (08:24)
[2018-07-04] MEDS: ENSURE ENLIVE CHOC 237 ML CAN PO SCH ×3 (08:24→16:44)
[2018-07-04] MEDS: MUPIROCIN OINT 2% 22 GM TUBE SCH ×2 (08:24→20:47)
[2018-07-04] MEDS: METOPROLOL TARTRATE 25 MG TABLET PO SCH ×2 (08:25→16:44)
[2018-07-04] MEDS: FLUCONAZOLE IN NS 100 MG in PREMIX 1 EA IV SCH ×2 (08:26)
[2018-07-04] MEDS: GABAPENTIN 400 MG CAPSULE PO SCH ×3 (08:34→16:44)
[2018-07-04] MEDS: CEFTRIAXONE 1 G in IV D5W 50 ML IV SCH (10:13)
--- NOTE | 2018-07-04 10:30 | NUR ---
MS/RN S/B Wound care Seen by wound care - dressing changed by CUSTOMER MANAGEMENT SPECIALIST. Cabrera catheter to remain in place when patient is discharged back to SNF.
[2018-07-04 16:00] VITALS: BP 102/99
--- NOTE | 2018-07-04 16:00 | NUR ---
MS/RN S/B Dr Danielle Seen by Dr Danielle - new orders noted and carried out.
--- NOTE | 2018-07-04 18:00 | NUR ---
MS/RN Drain BENTON drain emptied - 20ml output this shift.
--- NOTE | 2018-07-04 18:23 | NUR ---
MS/RN End note Patient remains in stable condition, all needs attended. Will endorse to night clerk.
--- NOTE | 2018-07-04 19:05 | NUR ---
MS RN OPENING NOTES: RECEIVED PT ON ROOM AIR AND IS TOLERATING WELL. PT IS A/OX3 IS SITTING UP IN BED WATCHING TELEVISION AT THIS TIME AND HAVING DINNER. NO SOB NOTED. NO S/S OF DISTRESS. PT HAS WOUND DRAIN AND IS DRAINING SEROUS FLUID AT THIS TIME. PT ALSO HAS CARSON CATH AND IS ATTACHED TO DRAINAGE BAG WITH YELLOW URINE DRAINING. PT HAS IV ON R FOREARM #22G AND IS PATENT AND INTACT. CURRENTLY H/L. BED KEPT IN LOW, LOCKED POSITION, AND SIDE RAILS X 2UP. WILL CONTINUE TO MONITOR PT.
[2018-07-04 20:00] VITALS: BP 116/86
--- NOTE | 2018-07-04 21:27 | NUR ---
MS RN NOTES: PAGED DR. GONZALEZ'S OFFICE. PT REQUESTING FOR SLEEPING AID.
--- NOTE | 2018-07-04 21:48 | NUR ---
MS RN NOTES: GOT ORDER FOR AMBIEN 5MG PO QHS PRN SLEEP.
[2018-07-04] MEDS: ZOLPIDEM TARTRATE 5 MG TABLET PO PRN (21:54)
--- NOTE | 2018-07-04 21:57 | NUR ---
MS RN NOTES: PT REQUESTING FOR SLEEPING AID. PT WAS ADMINISTERED AMBIEN 5MG PO. WILL CONTINUE TO MONITOR.
--- NOTE | 2018-07-05 06:17 | NUR ---
MS RN CLOSING NOTES: ALL NEEDS WERE ATTENDED AND ANTICIPATED FOR. PT KEPT CLEAN, DRY, AND COMFORTABLE. PT TURNED AND REPOSITIONED Q2HRS. DRESSING KEPT CLEAN AND DRY. PT HAS BENTON DRAIN WITH SEROSANGUINEOUS FLUID. OUTPUT WAS 10ML. PT HAS CARSON CATH AND IS ATTACHED TO DRAINAGE BAG WITH YELLOW URINE DRAINING. OUTPUT WAS 1200ML. PT HAS BILATERAL SCD PUMPS IN PLACE. BED ALARM ACTIVATED. BED KEPT IN LOW, LOCKED POSITION, AND SIDE RAILS X 2UP. WILL ENDORSE TO AM NURSE FOR GONZALO.
--- NOTE | 2018-07-05 07:52 | NUR ---
RN NOTES PATIENT A/OX3, BREATHING EVEN AND UNLABORED, NO SOB NOTED, C/O MILD CHRONIC PAIN, DRESSING CLEAN AND DRY. PT HAS BENTON DRAIN AND DRAINING, PT HAS CARSON CATH AND IS ATTACHED TO DRAINAGE BAG WITH YELLOW URINE DRAINING. PT HAS BILATERAL SCD PUMPS IN PLACE. BED ALARM ACTIVATED. BED KEPT IN LOW, LOCKED POSITION, AND SIDE RAILS X 2UP, CALL LIGHT WITHIN REACH, WILL CONTINUE TO MONITOR.
[2018-07-05 08:00] VITALS: BP 117/71
[2018-07-05] MEDS: ENSURE ENLIVE CHOC 237 ML CAN PO SCH ×3 (08:20→16:07)
[2018-07-05] MEDS: CALCIUM CARB 250MG /VITAMIN D 1 UDTAB PO SCH (08:21)
[2018-07-05] MEDS: FUROSEMIDE 20 MG TABLET PO SCH (08:21)
[2018-07-05] MEDS: OXYBUTYNIN CHLORIDE 5 MG TABLET PO SCH ×3 (08:21→16:05)
[2018-07-05] MEDS: POTASSIUM CHLORIDE 20 MEQ TAB.PRT.SR PO SCH (08:21)
[2018-07-05] MEDS: FENOFIBRATE NANOCRYS (145 MG) 145 MG TABLET PO SCH (08:21)
[2018-07-05] MEDS: ACETAMINOPHEN 325 MG TABLET PO SCH (08:21)
[2018-07-05] MEDS: DOCUSATE SODIUM 100 MG CAPSULE PO SCH ×2 (08:21→16:06)
[2018-07-05] MEDS: GABAPENTIN 400 MG CAPSULE PO SCH ×3 (08:21→16:06)
[2018-07-05] MEDS: MULTIVITAMINS,THERAGRAN 1 UDTAB TABLET PO SCH (08:22)
[2018-07-05] MEDS: ASCORBIC ACID 500 MG TABLET PO SCH (08:22)
[2018-07-05] MEDS: METOPROLOL TARTRATE 25 MG TABLET PO SCH ×2 (08:22→16:06)
[2018-07-05] MEDS: MUPIROCIN OINT 2% 22 GM TUBE SCH ×2 (08:26→20:28)
[2018-07-05] MEDS: FLUTICASONE PROPIONATE 16 GM BOTTLE NS SCH (08:26)
[2018-07-05] MEDS: FLUCONAZOLE IN NS 100 MG in PREMIX 1 EA IV SCH ×2 (08:30)
[2018-07-05] MEDS: CEFTRIAXONE 1 G in IV D5W 50 ML IV SCH (09:31)
[2018-07-05 16:00] VITALS: BP 118/65
--- NOTE | 2018-07-05 19:25 | NUR ---
MS RN OPENING NOTES: RECEIVED PT ON ROOM AIR AND IS TOLERATING WELL. NO SOB NOTED. NO S/S OF DISTRESS. PT SITTING UP AND IS EATING DINNER AND WATCHING TELEVISION AT THIS TIME. PT A/OX4. PT HAS IV AND IS PATENT AND INTACT. CURRENTLY H/L. PT HAS BENTON DRAIN AND IS DRAINING SEROSANGUINEOUS FLUID. PT ALSO HAS CARSON CATH AND IS ATTACHED TO DRAINAGE BAG WITH YELLOW URINE DRAINING. BED ALARM ACTIVATED. BED KEPT IN LOW, LOCKED POSITION, AND SIDE RAILS X 2UP. WILL CONTINUE TO MONITOR PT.
[2018-07-05 20:00] VITALS: BP 101/63
--- NOTE | 2018-07-05 20:01 | NUR ---
RN NOTES PATIENT A/OX3, NO DISTRESS NOTED AT THIS TIME, TURNED AND REPOSITIONED EVERY 2 HOURS, BENTON DRAIN INTACT AND DRAINING. ENDORSED TO STOREROOM SUPERVISOR FOR GONZALO.
[2018-07-05] MEDS: ZOLPIDEM TARTRATE 5 MG TABLET PO PRN (20:29)
--- NOTE | 2018-07-05 20:30 | NUR ---
MS RN NOTES: PT REQUESTING FOR SLEEPING AID AT THIS TIME. PT WAS ADMINISTERED AMBIEN 5MG PO. WILL CONTINUE TO MONITOR.
[2018-07-06] MEDS: TRAMADOL HCL 50 MG TABLET PO PRN (03:55)
--- NOTE | 2018-07-06 03:56 | NUR ---
MS RN NOTES: PT COMPLAINING OF L BUTTOCK 7/10 PAIN. PT WAS ADMINISTERED TRAMADOL 50MG PO. WILL CONTINUE TO MONITOR.
[2018-07-06 07:26] LABS: BASOPHILS # (AUTO) 0.1 /CMM (0.0-0.2); BASOPHILS % (AUTO) 1.1 % (0.0-2.0); EOSINOPHILS % (AUTO) 3.5 % (0.0-6.0); HEMATOCRIT 31 % (33-45); HEMOGLOBIN 10.1 g/dL (11.5-14.8); LYMPHOCYTES # (AUTO) 1.4 /CMM (0.8-4.8); LYMPHOCYTES % (AUTO) 19.6 % (20.0-44.0); MEAN CORPUSCULAR HGB CONC 33 g/dl (31.0-36.0); MEAN CORPUSCULAR VOLUME 77 fL (82-100); MONOCYTES # (AUTO) 0.7 /CMM (0.1-1.30); MONOCYTES % (AUTO) 10.2 % (2.0-12.0); NEUTROPHILS # (AUTO) 4.8 /CMM (1.8-8.9); NEUTROPHILS % (AUTO) 65.6 % (43.0-81.0); PLATELET COUNT (AUTO) 302 /CMM (150-450); RED BLOOD CELL COUNT(AUTO) 3.97 MIL/uL (4.0-5.2); WHITE BLOOD COUNT (AUTO) 7.3 K/uL (4.3-11.0)
--- NOTE | 2018-07-06 07:34 | NUR ---
MS RN CLOSING NOTES: ALL NEEDS WERE ATTENDED AND ANTICIPATED FOR. PT KEPT CLEAN, DRY, AND COMFORTABLE. CARSON CATH REMAINS IN PLACE. OUTPUT WAS 400ML. PT HAS BENTON DRAIN WITH SANGUINEOUS FLUID AND OUTPUT WAS 25ML. PT HAS IV AND IS PATENT AND INTACT. CURRENTLY H/L. PT ON ROOM AIR AND TOLERATING WELL. NO SOB NOTED. NO S/S OF DISTRESS. WOUND KEPT CLEAN AND DRY. BED ALARM ACTIVATED. ENDORSED TO AM NURSE FOR GONZALO.
[2018-07-06 08:00] VITALS: BP 107/62
[2018-07-06 08:04] LABS: ALBUMIN 2.6 g/dL (3.4-5.0); BILIRUBIN,TOTAL 0.4 mg/dL (0.2-1.0); CALCIUM, SERUM 9.1 mg/dL (8.5-10.1); CREATININE 0.6 mg/dL (0.6-1.3); MAGNESIUM 1.8 mg/dL (1.8-2.4); PHOSPHORUS 2.6 mg/dL (2.5-4.9); POTASSIUM 3.5 mmol/L (3.5-5.1); TOTAL PROTEIN, SERUM 7.2 g/dL (6.4-8.2)
--- NOTE | 2018-07-06 08:06 | NUR ---
RN NOTES PATIENT A/OX3, NO DISTRESS NOTED, BENOTN DRAIN INTACT AND DRAINING, CARSON CATHETER PATENT AND DRAINING YELLOW URINE. DENIES PAIN OR DISCOMFORT, CALL LIGHT WITHIN REACH, WILL CONTINUE TO MONITOR.
[2018-07-06] MEDS: DOCUSATE SODIUM 100 MG CAPSULE PO SCH ×2 (09:19→17:22)
[2018-07-06] MEDS: FUROSEMIDE 20 MG TABLET PO SCH (09:19)
[2018-07-06] MEDS: ASCORBIC ACID 500 MG TABLET PO SCH (09:19)
[2018-07-06] MEDS: FENOFIBRATE NANOCRYS (145 MG) 145 MG TABLET PO SCH (09:19)
[2018-07-06] MEDS: OXYBUTYNIN CHLORIDE 5 MG TABLET PO SCH ×3 (09:20→17:22)
[2018-07-06] MEDS: CALCIUM CARB 250MG /VITAMIN D 1 UDTAB PO SCH (09:20)
[2018-07-06] MEDS: MULTIVITAMINS,THERAGRAN 1 UDTAB TABLET PO SCH (09:20)
[2018-07-06] MEDS: FLUCONAZOLE (100 MG) 100 MG TABLET PO SCH (09:20)
[2018-07-06] MEDS: ACETAMINOPHEN 325 MG TABLET PO SCH (09:20)
[2018-07-06] MEDS: POTASSIUM CHLORIDE 20 MEQ TAB.PRT.SR PO SCH (09:20)
[2018-07-06] MEDS: GABAPENTIN 400 MG CAPSULE PO SCH ×3 (09:20→17:22)
[2018-07-06] MEDS: METOPROLOL TARTRATE 25 MG TABLET PO SCH ×2 (09:21→17:00)
[2018-07-06] MEDS: CEFTRIAXONE 1 G in IV D5W 50 ML IV SCH (09:23)
[2018-07-06] MEDS: FLUTICASONE PROPIONATE 16 GM BOTTLE NS SCH (09:28)
[2018-07-06] MEDS: MUPIROCIN OINT 2% 22 GM TUBE SCH ×2 (09:29→20:26)
[2018-07-06] MEDS: ENSURE ENLIVE CHOC 237 ML CAN PO SCH ×3 (09:29→17:22)
[2018-07-06 16:00] VITALS: BP 130/76
--- NOTE | 2018-07-06 19:06 | NUR ---
RN NOTES PATIENT A/OX4, DENIES PAIN OR DISCOMFORT, NO SIGNIFICANT CHANGE THROUGHOUT THIS SHIFT, TURNED AND REPOSITIONED, SKIN CARE PROVIDED, CARSON CATH DRAINING YELLOW URINE. BENTON PATENT AND DRAINED 10ML OF SEROSANGUINEOUS OUTPUT. NEEDS ATTENDED, CALL LIGHT WITHIN REACH, WILL ENDORSE TO STAKING TECHNICIAN FOR GONZALO.
--- NOTE | 2018-07-06 19:12 | NUR ---
RN NOTES RECEIVED PT IN BED AWAKE AND ABLE TO MAKE NEEDS KNOWN. PATIENT A/OX4. PT DENIES PAIN OR DISCOMFORT AT THIS TIME. PT WITH FC DRAINING WELL. PT WITH RFA 24G PATENT AND INTACT SL. SAFETY MEASURES IN PLACE WITH BED IN LOWEST LOCKED POSITION WITH SIDE RAILS UP X2. CALL LIGHT WITHIN REACH. WILL CONTINUE TO MONITOR.
[2018-07-06] MEDS: ZOLPIDEM TARTRATE 5 MG TABLET PO PRN (22:09)
--- NOTE | 2018-07-07 06:47 | NUR ---
RN NOTES PT IN BED AWAKE AND ABLE TO MAKE NEEDS KNOWN. PATIENT A/OX4. PT DENIES PAIN OR DISCOMFORT AT THIS TIME. PT WITH FC DRAINING WELL WELL BENTON DRAIN. RESPIRATIONS EVEN AND UNLABORED WITH NO S/S OF ACUTE DISTRESS OR SOB NOTED THROUGHOUT SHIFT. PT KEPT CLEAN, DRY, AND COMFORTABLE. PT WITH RFA 24G PATENT AND INTACT SL. SAFETY MEASURES IN PLACE WITH BED IN LOWEST LOCKED POSITION WITH SIDE RAILS UP X2. CALL LIGHT WITHIN REACH. WILL ENDORSE TO ONCOMING NURSE FOR GONZALO.
--- NOTE | 2018-07-07 07:12 | NUR ---
MS RN NOTES PATIENT IN BED ALERT ORIENTED X 4. NO ACUTE DISTRESS NOTED. BREATHING UNLABORED. NO SOB NOTED. IV ACCESS PATENT AND INTACT, NO REDNESS OR SWELLING NOTED. CARSON CATHETER AND BENTON DRAIN INTACT DRAINING WELL. SAFETY MEASURES IN PLACE. CALL LIGHT WITHIN REACH. WILL CONTINUE TO MONITOR ACCORDINGLY.
[2018-07-07 08:00] VITALS: BP 106/74
[2018-07-07] MEDS: ENSURE ENLIVE CHOC 237 ML CAN PO SCH ×3 (08:51→17:14)
[2018-07-07] MEDS: FLUCONAZOLE (100 MG) 100 MG TABLET PO SCH (08:59)
[2018-07-07] MEDS: FUROSEMIDE 20 MG TABLET PO SCH (08:59)
[2018-07-07] MEDS: ACETAMINOPHEN 325 MG TABLET PO SCH (08:59)
[2018-07-07] MEDS: MULTIVITAMINS,THERAGRAN 1 UDTAB TABLET PO SCH (08:59)
[2018-07-07] MEDS: ASCORBIC ACID 500 MG TABLET PO SCH (08:59)
[2018-07-07] MEDS: CALCIUM CARB 250MG /VITAMIN D 1 UDTAB PO SCH (08:59)
[2018-07-07] MEDS: OXYBUTYNIN CHLORIDE 5 MG TABLET PO SCH ×3 (09:00→17:14)
[2018-07-07] MEDS: FENOFIBRATE NANOCRYS (145 MG) 145 MG TABLET PO SCH (09:00)
[2018-07-07] MEDS: METOPROLOL TARTRATE 25 MG TABLET PO SCH ×2 (09:00→17:00)
[2018-07-07] MEDS: DOCUSATE SODIUM 100 MG CAPSULE PO SCH ×2 (09:00→17:14)
[2018-07-07] MEDS: GABAPENTIN 400 MG CAPSULE PO SCH ×3 (09:00→17:14)
[2018-07-07] MEDS: MUPIROCIN OINT 2% 22 GM TUBE SCH ×2 (09:02→21:30)
[2018-07-07] MEDS: FLUTICASONE PROPIONATE 16 GM BOTTLE NS SCH (09:02)
[2018-07-07] MEDS: POTASSIUM CHLORIDE 20 MEQ TAB.PRT.SR PO SCH (09:04)
[2018-07-07] MEDS: CEFTRIAXONE 1 G in IV D5W 50 ML IV SCH (09:08)
--- NOTE | 2018-07-07 14:00 | NUR ---
MS RN NOTES SEEN BY DR BLANCAS , WOUND CARE DONE AND DRESSING CHANGED.
[2018-07-07 16:00] VITALS: BP 101/76
--- NOTE | 2018-07-07 19:00 | NUR ---
MS RN NOTES PATIENT IN BED ALERT ORIENTED X 3. NO ACUTE DISTRESS NOTED. BREATHING UNLABORED. NO SOB NOTED. IV ACCESS PATENT AND INTACT, NO REDNESS OR SWELLING NOTED. DUE MEDICATIONS GIVEN, NO ASE NOTED. NEEDS ATTENDED AND ANTICIPATED. KEPT CLEAN DRY AND COMFORTABLE.CARSON CATHETER INTACT DRAINING WELL. BENTON DRAIN INTACT WITH 20CC SEROSANGUINEOUS OUTPUT. SAFETY MEASURES IN PLACE. CALL LIGHT WITHIN REACH. WILL ENDORSE TO NIGHT NURSE FOR CONTINUITY OF CARE.
[2018-07-07 20:00] VITALS: BP 100/75
--- NOTE | 2018-07-08 06:52 | NUR ---
MS RN NOTES AWAKE & RESPONSIVE. NOT IN ANY DISTRESS. NO SOB NOTED. DENIES ANY PAIN OR DISCOMFORT AT THIS TIME. WITH IV-HL PATENT & INTACT. WITH F/C DRAINING TO YELLOWISH OUTPUT MODERATE IN AMOUNT. WITH DRESSING C/D/I WITH BENTON DRAIN X 1 DRAINING SEROSANGUINOUS OUTPUT SCANTY IN AMOUNT. KEPT ON NEGATIVE PRESSURE. CALL LIGHT WITHIN REACH. BED IN LOWEST POSITION. SR UP X 3 FOR SAFETY. WILL ENDORSE TO NEXT SHIFT.
--- NOTE | 2018-07-08 07:25 | NUR ---
MS RN NOTES RECEIVED PATIENT AWAKE & RESPONSIVE. NOT IN ANY DISTRESS. NO SOB NOTED. DENIES ANY PAIN OR DISCOMFORT AT THIS TIME. IV ACCESS PATENT & INTACT. WITH F/C DRAINING TO YELLOWISH OUTPUT MODERATE IN AMOUNT. NOTED DRESSING C/D/I WITH BENTON DRAIN ON LEFT BUTTOCKS, DRAINING SEROSANGUINOUS OUTPUT SCANTY IN AMOUNT, KEPT ON NEGATIVE PRESSURE. SAFETY MEASURES INITIATED. CALL LIGHT WITHIN REACH. BED IN LOCKED/ LOWEST POSITION. SR UP X 3 FOR SAFETY. WILL CONTINUE TO MONIOTR ACCORDINGLY
[2018-07-08 08:00] VITALS: BP 111/74
[2018-07-08] MEDS: MUPIROCIN OINT 2% 22 GM TUBE SCH (09:05)
[2018-07-08] MEDS: FUROSEMIDE 20 MG TABLET PO SCH (09:05)
[2018-07-08] MEDS: ASCORBIC ACID 500 MG TABLET PO SCH (09:05)
[2018-07-08] MEDS: ENSURE ENLIVE CHOC 237 ML CAN PO SCH ×2 (09:05→13:30)
[2018-07-08] MEDS: OXYBUTYNIN CHLORIDE 5 MG TABLET PO SCH ×2 (09:05→13:31)
[2018-07-08] MEDS: GABAPENTIN 400 MG CAPSULE PO SCH ×2 (09:06→13:31)
[2018-07-08] MEDS: DOCUSATE SODIUM 100 MG CAPSULE PO SCH (09:06)
[2018-07-08] MEDS: FLUCONAZOLE (100 MG) 100 MG TABLET PO SCH (09:06)
[2018-07-08] MEDS: POTASSIUM CHLORIDE 20 MEQ TAB.PRT.SR PO SCH (09:06)
[2018-07-08] MEDS: FENOFIBRATE NANOCRYS (145 MG) 145 MG TABLET PO SCH (09:07)
[2018-07-08] MEDS: CALCIUM CARB 250MG /VITAMIN D 1 UDTAB PO SCH (09:08)
[2018-07-08] MEDS: ACETAMINOPHEN 325 MG TABLET PO SCH (09:08)
[2018-07-08 09:09] VITALS: BP 111/74
[2018-07-08] MEDS: METOPROLOL TARTRATE 25 MG TABLET PO SCH (09:09)
[2018-07-08] MEDS: MULTIVITAMINS,THERAGRAN 1 UDTAB TABLET PO SCH (09:22)
[2018-07-08] MEDS: CEFTRIAXONE 1 G in IV D5W 50 ML IV SCH (09:22)
[2018-07-08] MEDS: FLUTICASONE PROPIONATE 16 GM BOTTLE NS SCH (09:23)
--- NOTE | 2018-07-08 14:00 | NUR ---
RN NOTES PICTURES TAKEN
--- NOTE | 2018-07-08 14:45 | NUR ---
DISCHARGED PATIENT IN STABLE CONDITION PICKE UP BY PARAMEDICS. PATIENT RETURNED TO SNF,REPORT GIVEN TO VIVIAN AT [facility]. DISCHARGE INSTRUCTIONS GIVEN, VERBALIZED UNDERSTANDING. ALL BELONGINGS RETURNED. FORMS SIGNED. REMOVED IV ACCESS, NO COMPLICATION. REMOVED NAME BAND. BENTON DRAIN AND CARSON CATH IN PLACED.
[2018-07-20] MEDS ORDERED: LEVO500T2 PO (14:15)
[2018-07-20] MEDS ORDERED: PHYT10AM SQ (14:15)
[2018-07-20] MEDS ORDERED: METH1000 IV (14:15)
[2018-07-20] MEDS ORDERED: MUPI22OI7 (14:15)
[2018-07-20] MEDS ORDERED: LINE600T PO (14:15)
== END 2018-07-08 18:44 | DRG 576 ==
LOC: MEDSG2 13:02
PROVIDERS: ADMIT Internal Medicine Nephrology; ATTEND Internal Medicine Nephrology
PROC: 0JBM0ZZ Excision of Left Upper Leg Subcutaneous Tissue and Fascia, Open Approach (ICD-10-PCS; principal; 2018-06-30)
PROC: 0JXM0ZC Transfer Left Upper Leg Subcutaneous Tissue and Fascia with Skin, Subcutaneous Tissue and Fascia, Open Approach (ICD-10-PCS; 2018-06-30)
PROC: 0KXP0ZZ Transfer Left Hip Muscle, Open Approach (ICD-10-PCS; 2018-06-30)
DX: S31.829A Unspecified open wound of left buttock, initial encounter (principal); E43 Unspecified severe protein-calorie malnutrition; N39.0 Urinary tract infection, site not specified; G35 Multiple sclerosis; E66.01 Morbid (severe) obesity due to excess calories; Z68.34 Body mass index [BMI] 34.0-34.9, adult; J44.9 Chronic obstructive pulmonary disease, unspecified; D63.8 Anemia in other chronic diseases classified elsewhere; F17.210 Nicotine dependence, cigarettes, uncomplicated; G62.9 Polyneuropathy, unspecified; I10 Essential (primary) hypertension; G89.4 Chronic pain syndrome; R32 Unspecified urinary incontinence; I48.0 Paroxysmal atrial fibrillation; J30.2 Other seasonal allergic rhinitis; E78.5 Hyperlipidemia, unspecified; Z66 Do not resuscitate; K21.9 Gastro-esophageal reflux disease without esophagitis; N32.81 Overactive bladder; Z99.3 Dependence on wheelchair; F32.9 Major depressive disorder, single episode, unspecified; X58.XXXA Exposure to other specified factors, initial encounter; Y92.89 Other specified places as the place of occurrence of the external cause
CPT/HCPCS: 36415; 71045-TC; 80048-TC; 80053-TC; 81000-TC; 82962-TC; 83735-TC; 84100-TC; 85025-TC; 85610-TC; 85730-TC; 87040-TC; 87081-TC; 87086-TC; 87186-TC; 88305-TC; 88312-TC; A4216; A6253; A6402; A6403; G0378; J0690; J0696; J1450; J2405; J2704; J2710; J3490; J7050; J7060; Q9968

== ENCOUNTER 2018-07-15 13:20 | Inpatient (IN) | payer MEDICARE, MEDICAID ==
[~2018-07-15] VITALS: Ht 165.1 cm; Wt 98.0 kg
[~2018-07-15 13:20] MED LIST changes: -ACID1TAB12 PO; -CALC-7 PO; +CALC-883 PO; +CRAN3875 PO; +CRAN425C6 PO; +MELA3TAB PO; -ZINC220C8 PO
[2018-07-15] MEDS ORDERED: ZINC220T PO (13:42)
[2018-07-15 13:49] LABS: BASOPHILS # (AUTO) 0.1 /CMM (0.0-0.2); BASOPHILS % (AUTO) 1.2 % (0.0-2.0); EOSINOPHILS % (AUTO) 5.7 % (0.0-6.0); HEMATOCRIT 36 % (33-45); HEMOGLOBIN 11.7 g/dL (11.5-14.8); LYMPHOCYTES # (AUTO) 1.6 /CMM (0.8-4.8); MEAN CORPUSCULAR HGB CONC 33 g/dl (31.0-36.0); MEAN CORPUSCULAR VOLUME 79 fL (82-100); MONOCYTES # (AUTO) 0.3 /CMM (0.1-1.30); NEUTROPHILS # (AUTO) 2.6 /CMM (1.8-8.9); NEUTROPHILS % (AUTO) 53.1 % (43.0-81.0); PLATELET COUNT (AUTO) 420 /CMM (150-450); RED BLOOD CELL COUNT(AUTO) 4.59 MIL/uL (4.0-5.2)
[2018-07-15 13:50] LABS: BILIRUBIN,URINE Negative (NEGATIVE); BLOOD, URINE Negative Ery/uL (NEGATIVE); COLOR,URINE Yellow (YELLOW); KETONES,URINE Negative (NEGATIVE); LEUKOCYTE ESTERASE ,URINE Trace (NEGATIVE); NITRITE, URINE Negative (NEGATIVE); PROTEIN,URINE Negative (NEGATIVE); UGLUCOSE Negative (NEGATIVE); UROBILINOGEN,URINE 0.2 EU/dL (0.2)
[2018-07-15 13:51] LABS: APPEARANCE,URINE Hazy (CLEAR)
[2018-07-15 13:55] LABS: CALCIUM, SERUM 9.3 mg/dL (8.5-10.1); CARBON DIOXIDE 31 mmol/L (21-32); CHLORIDE 107 mmol/L (98-107); CREATININE 0.7 mg/dL (0.6-1.3); GLUCOSE 97 mg/dL (74-106); POTASSIUM 4.1 mmol/L (3.5-5.1); SODIUM SERUM 143 mmol/L (136-145); UREA NITROGEN, BLOOD 9 mg/dL (7-18)
[2018-07-15] MEDS ORDERED: CT SWABBABLE VALVE TRANS SET 1 EA INFUS.SET MC ONE (13:59)
[2018-07-15] MEDS ORDERED: IOHEXOL-350 100 ML VIAL IV ONE (13:59)
[2018-07-15 14:00] LABS: BACTERIA,URINE Rare /HPF (None Seen)
[2018-07-15] MEDS ORDERED: IV NS 0.9% 250 ML IV ONE (14:00)
[2018-07-15 14:01] LABS: SQUAMOUS EPITHELIAL CELL,UR Moderate /HPF (None Seen)
[2018-07-15 14:05] LABS: SERUM AMMONIA 7 umol/L (11-32)
[2018-07-15 14:11] LABS: ALANINE AMINOTRANSFERASE 19 U/L (12-78); ALBUMIN 3.1 g/dL (3.4-5.0); ALKALINE PHOSPHATASE 69 U/L (46-116); ASPARTATE AMINOTRANSFERASE 17 U/L (15-37); BILIRUBIN,DIRECT 0.1 mg/dL (0.0-0.2); BILIRUBIN,TOTAL 0.2 mg/dL (0.2-1.0); TOTAL PROTEIN, SERUM 7.4 g/dL (6.4-8.2)
[2018-07-15] MEDS ORDERED: LORAZEPAM INJ 2 MG/ML VIAL ONE (14:11)
[2018-07-15 14:17] LABS: ALCOHOL, BLOOD < 3 mg/dL (0-0)
[2018-07-15] MEDS ORDERED: LORAZEPAM INJ 2 MG/ML VIAL IV ONE (14:30)
[2018-07-15] MEDS ORDERED: IV NS 0.9% 500 ML BAG IV ONE (14:30)
[2018-07-15 14:45] LABS: THYROID STIMULATING HORMONE 1.616 uIU/mL (0.358-3.74)
[2018-07-15] MEDS ORDERED: ZOLPIDEM TARTRATE 5 MG TABLET PO PRN (17:00)
[2018-07-15] MEDS ORDERED: Z GUARD REMEDY 2 OZ OINT TP PRN (17:00)
[2018-07-15] MEDS ORDERED: ONDANSETRON HCL/PF 4 MG/2 ML VIAL IVP PRN (17:00)
[2018-07-15] MEDS ORDERED: ACETAMINOPHEN 325 MG TABLET PO PRN (17:00)
[2018-07-15] MEDS ORDERED: MAGNESIUM HYDROXIDE 30 ML UDC PO PRN (17:00)
[2018-07-15] MEDS ORDERED: BISACODYL SUPP (10 MG) 10 MG/SUPP.RECT SUPP.RECT RC PRN (17:00)
[2018-07-15] MEDS: METOPROLOL TARTRATE 25 MG TABLET PO SCH (17:00)
[2018-07-15] MEDS ORDERED: INTERFERON BETA 1B SQ SCH (17:00)
[2018-07-15 17:41] LABS: ABG BASE EXCESS 1.6 mmol/L; ABG PCO2 39.8 mmHg (35.0-45.0); ABG PH 7.432 (7.350-7.450); ABG PO2 86.2 mmHg (75.0-100.0); AaDO2 15.9 mmHg; COHb 0.3 % (0.5-1.5); MetHb 0.6 % (0.0-1.5); O2Hb 95.1 % (94.0-97.0); SITE, ABG Right Radial; VENT MODE, BG ROOM AIR
[2018-07-15 18:18] VITALS: BP 96/64
[2018-07-15] MEDS: DOCUSATE SODIUM 100 MG CAPSULE PO SCH (19:06)
[2018-07-15 20:00] VITALS: BP 122/79
[2018-07-15] MEDS ORDERED: Medication Not On Formulary EA (Melatonin 3 MG) PO SCH (22:00)
[2018-07-16] VITALS: BP 107/64
[2018-07-16 04:00] VITALS: BP 101/68
[2018-07-16 06:54] LABS: BASOPHILS % (AUTO) 0.7 % (0.0-2.0); EOSINOPHILS % (AUTO) 5.2 % (0.0-6.0); HEMATOCRIT 38 % (33-45); LYMPHOCYTES # (AUTO) 1.6 /CMM (0.8-4.8); MEAN CORPUSCULAR HGB CONC 32 g/dl (31.0-36.0); MEAN CORPUSCULAR VOLUME 78 fL (82-100); MONOCYTES # (AUTO) 0.5 /CMM (0.1-1.30); MONOCYTES % (AUTO) 8.1 % (2.0-12.0); NEUTROPHILS # (AUTO) 3.3 /CMM (1.8-8.9); PLATELET COUNT (AUTO) 357 /CMM (150-450); RED BLOOD CELL COUNT(AUTO) 4.81 MIL/uL (4.0-5.2); WHITE BLOOD COUNT (AUTO) 5.7 K/uL (4.3-11.0)
[2018-07-16 07:16] LABS: CALCIUM, SERUM 9.3 mg/dL (8.5-10.1); CREATININE 0.7 mg/dL (0.6-1.3); PHOSPHORUS 3.7 mg/dL (2.5-4.9); POTASSIUM 3.7 mmol/L (3.5-5.1)
[2018-07-16] MEDS ORDERED: GADODIAMIDE 2.5 MMOL/5 ML VIAL IJ ONE (07:42)
[2018-07-16] MEDS ORDERED: GADODIAMIDE 5 MMOL/10 ML VIAL IJ ONE (07:42)
[2018-07-16 08:00] VITALS: BP 109/69
[2018-07-16] MEDS: ASCORBIC ACID 500 MG TABLET PO SCH (08:24)
[2018-07-16] MEDS: CALCIUM CARB 600MG /VIT D 1 EACH TABLET PO SCH (08:24)
[2018-07-16] MEDS: MULTIVIT W/MINERALS 1 TAB TABLET PO SCH (08:24)
[2018-07-16] MEDS: ACETAMINOPHEN 325 MG TABLET PO SCH (08:24)
[2018-07-16] MEDS: DOCUSATE SODIUM 100 MG CAPSULE PO SCH ×2 (08:24→16:26)
[2018-07-16] MEDS: FLUTICASONE PROPIONATE 16 GM BOTTLE NS SCH (08:24)
[2018-07-16] MEDS: ZINC SULFATE 220 MG CAPSULE PO SCH (08:24)
[2018-07-16] MEDS: METOPROLOL TARTRATE 25 MG TABLET PO SCH ×2 (08:25→16:26)
[2018-07-16 16:00] VITALS: BP 104/69
[2018-07-16 20:00] VITALS: BP 116/74
[2018-07-16] MEDS: MUPIROCIN OINT 2% 22 GM TUBE SCH (21:06)
[2018-07-17 08:00] VITALS: BP 131/70
[2018-07-17] MEDS: ZINC SULFATE 220 MG CAPSULE PO SCH (09:02)
[2018-07-17] MEDS: MULTIVIT W/MINERALS 1 TAB TABLET PO SCH (09:02)
[2018-07-17] MEDS: CALCIUM CARB 600MG /VIT D 1 EACH TABLET PO SCH (09:02)
[2018-07-17] MEDS: METOPROLOL TARTRATE 25 MG TABLET PO SCH ×2 (09:02→16:36)
[2018-07-17] MEDS: ASCORBIC ACID 500 MG TABLET PO SCH (09:02)
[2018-07-17] MEDS: DOCUSATE SODIUM 100 MG CAPSULE PO SCH ×2 (09:02→16:35)
[2018-07-17] MEDS: FLUTICASONE PROPIONATE 16 GM BOTTLE NS SCH (09:03)
[2018-07-17] MEDS: ACETAMINOPHEN 325 MG TABLET PO SCH (09:03)
[2018-07-17] MEDS: MUPIROCIN OINT 2% 22 GM TUBE SCH ×2 (09:09→20:32)
[2018-07-17] MEDS: methylPREDNISolone SOD SUCC 125 MG/2ML VIAL IV SCH (11:04)
[2018-07-17 12:00] VITALS: BP 118/73
[2018-07-17 16:00] VITALS: BP 118/72
[2018-07-17 20:00] VITALS: BP 106/69
[2018-07-18] VITALS: BP 127/85
[2018-07-18 04:00] VITALS: BP 132/51
[2018-07-18 08:00] VITALS: BP 120/66
[2018-07-18] MEDS: ASCORBIC ACID 500 MG TABLET PO SCH (08:49)
[2018-07-18] MEDS: ZINC SULFATE 220 MG CAPSULE PO SCH (08:49)
[2018-07-18] MEDS: CALCIUM CARB 600MG /VIT D 1 EACH TABLET PO SCH (08:49)
[2018-07-18] MEDS: MULTIVIT W/MINERALS 1 TAB TABLET PO SCH (08:49)
[2018-07-18] MEDS: DOCUSATE SODIUM 100 MG CAPSULE PO SCH ×2 (08:49→16:40)
[2018-07-18] MEDS: ACETAMINOPHEN 325 MG TABLET PO SCH (08:50)
[2018-07-18] MEDS: METOPROLOL TARTRATE 25 MG TABLET PO SCH ×2 (08:57→16:40)
[2018-07-18] MEDS: methylPREDNISolone SOD SUCC 125 MG/2ML VIAL IV SCH (08:58)
[2018-07-18] MEDS: MUPIROCIN OINT 2% 22 GM TUBE SCH ×2 (08:58→21:20)
[2018-07-18] MEDS: FLUTICASONE PROPIONATE 16 GM BOTTLE NS SCH (08:59)
[2018-07-18 16:00] VITALS: BP 103/65
[2018-07-18] MEDS: BACI/NEOM/POLY B OINT PKT 1 UDPKT PACKET TP SCH (16:26)
[2018-07-18 20:00] VITALS: BP 109/66
[2018-07-18] MEDS ORDERED: MUPIROCIN OINT 2% 22 GM TUBE SCH (21:00)
[2018-07-18] MEDS: LEVOFLOXACIN (500MG) 500 MG TABLET PO SCH (21:17)
[2018-07-18] MEDS: LINEZOLID 600 MG TABLET PO SCH (21:17)
[2018-07-18] MEDS: TAMSULOSIN 0.4 MG CAP.SR.24H PO SCH (21:17)
[2018-07-19 08:00] VITALS: BP 110/62
[2018-07-19] MEDS: MULTIVIT W/MINERALS 1 TAB TABLET PO SCH (08:47)
[2018-07-19] MEDS: ZINC SULFATE 220 MG CAPSULE PO SCH (08:47)
[2018-07-19] MEDS: CALCIUM CARB 600MG /VIT D 1 EACH TABLET PO SCH (08:47)
[2018-07-19] MEDS: DOCUSATE SODIUM 100 MG CAPSULE PO SCH ×2 (08:47→16:31)
[2018-07-19] MEDS: ASCORBIC ACID 500 MG TABLET PO SCH (08:47)
[2018-07-19] MEDS: ACETAMINOPHEN 325 MG TABLET PO SCH (08:47)
[2018-07-19] MEDS: METOPROLOL TARTRATE 25 MG TABLET PO SCH ×2 (08:48→16:31)
[2018-07-19] MEDS: LINEZOLID 600 MG TABLET PO SCH ×2 (08:50→21:07)
[2018-07-19] MEDS: methylPREDNISolone SOD SUCC 125 MG/2ML VIAL IV SCH (09:01)
[2018-07-19] MEDS: MUPIROCIN OINT 2% 22 GM TUBE SCH ×2 (09:02→21:08)
[2018-07-19] MEDS: FLUTICASONE PROPIONATE 16 GM BOTTLE NS SCH (09:11)
[2018-07-19] MEDS: BACI/NEOM/POLY B OINT PKT 1 UDPKT PACKET TP SCH ×2 (09:12→16:33)
[2018-07-19] MEDS ORDERED: SOLU-MEDROL 500 MG IN NS 100 ML IV SCH (11:00)
[2018-07-19 16:00] VITALS: BP 116/73
[2018-07-19 20:00] VITALS: BP 120/79
[2018-07-19] MEDS: LEVOFLOXACIN (500MG) 500 MG TABLET PO SCH (21:07)
[2018-07-19] MEDS: TAMSULOSIN 0.4 MG CAP.SR.24H PO SCH (21:07)
[2018-07-19] MEDS ORDERED: PHYTONADIONE INJ 10 MG/1 ML AMPUL SQ SCH (23:00)
[2018-07-19] MEDS ORDERED: methylPREDNISolone SOD SUCC 125 MG/2ML VIAL IV ONE (23:30)
[2018-07-19] MEDS ORDERED: SOLU-MEDROL 500 MG IN NS 100 ML IV ONE (23:45)
[2018-07-20 08:00] VITALS: BP 123/67
[2018-07-20] MEDS ORDERED: methylPREDNISolone SOD SUCC 125 MG/2ML VIAL IV SCH (09:00)
[2018-07-20] MEDS ORDERED: methylPREDNISolone SOD SUCC 1,000 MG in IV NS 0.9% 250 ML IV SCH (09:00)
[2018-07-20] MEDS: FLUTICASONE PROPIONATE 16 GM BOTTLE NS SCH (10:30)
[2018-07-20] MEDS: DOCUSATE SODIUM 100 MG CAPSULE PO SCH ×2 (10:30→16:21)
[2018-07-20] MEDS: CALCIUM CARB 600MG /VIT D 1 EACH TABLET PO SCH (10:30)
[2018-07-20] MEDS: METOPROLOL TARTRATE 25 MG TABLET PO SCH ×2 (10:31→16:05)
[2018-07-20] MEDS: LINEZOLID 600 MG TABLET PO SCH (10:32)
[2018-07-20] MEDS: BACI/NEOM/POLY B OINT PKT 1 UDPKT PACKET TP SCH ×2 (10:32→16:00)
[2018-07-20] MEDS: ACETAMINOPHEN 325 MG TABLET PO SCH (10:32)
[2018-07-20] MEDS: MULTIVIT W/MINERALS 1 TAB TABLET PO SCH (10:35)
[2018-07-20] MEDS: ASCORBIC ACID 500 MG TABLET PO SCH (10:35)
[2018-07-20] MEDS: ZINC SULFATE 220 MG CAPSULE PO SCH (10:35)
[2018-07-20] MEDS: MUPIROCIN OINT 2% 22 GM TUBE SCH (10:38)
[2018-07-20] MEDS ORDERED: PHYTONADIONE INJ 10 MG/1 ML AMPUL SQ SCH (14:00)
[2018-07-20] MEDS ORDERED: LINE600T PO (14:15)
[2018-07-20] MEDS ORDERED: LEVO500T2 PO (14:15)
[2018-07-20] MEDS ORDERED: PHYT10AM SQ (14:15)
[2018-07-20] MEDS ORDERED: METH1000 IV (14:15)
[2018-07-20] MEDS ORDERED: MUPI22OI7 (14:15)
[2018-07-20] MEDS ORDERED: HYDROGEL DRESSING 90 GM TUBE TP SCH (15:30)
[2018-07-20 16:00] VITALS: BP 116/64
[2018-07-20 16:05] VITALS: BP 116/64
== END 2018-07-20 18:58 | DRG 41 ==
LOC: ER 13:22 → TELE 15:49 → MED 07-16 09:23 → TELE 07-17 07:16 → MED 07-18 15:08
PROVIDERS: ADMIT Internal Medicine; ATTEND Internal Medicine
PROC: 0JB90ZZ Excision of Buttock Subcutaneous Tissue and Fascia, Open Approach (ICD-10-PCS; principal; 2018-07-20)
DX: G35 Multiple sclerosis (principal); N39.0 Urinary tract infection, site not specified; D68.9 Coagulation defect, unspecified; R47.01 Aphasia; G93.40 Encephalopathy, unspecified; I10 Essential (primary) hypertension; J44.9 Chronic obstructive pulmonary disease, unspecified; R32 Unspecified urinary incontinence; Z79.899 Other long term (current) drug therapy; K21.9 Gastro-esophageal reflux disease without esophagitis; G62.9 Polyneuropathy, unspecified; E78.5 Hyperlipidemia, unspecified; G89.4 Chronic pain syndrome; Z87.440 Personal history of urinary (tract) infections; J30.2 Other seasonal allergic rhinitis; F17.210 Nicotine dependence, cigarettes, uncomplicated; S31.829A Unspecified open wound of left buttock, initial encounter; X58.XXXA Exposure to other specified factors, initial encounter; Y93.9 Activity, unspecified; Y92.009 Unspecified place in unspecified non-institutional (private) residence as the place of occurrence of the external cause; E66.01 Morbid (severe) obesity due to excess calories; Z68.35 Body mass index [BMI] 35.0-35.9, adult; Z22.322 Carrier or suspected carrier of Methicillin resistant Staphylococcus aureus; B96.5 Pseudomonas (aeruginosa) (mallei) (pseudomallei) as the cause of diseases classified elsewhere; B95.2 Enterococcus as the cause of diseases classified elsewhere; Z16.21 Resistance to vancomycin; Z66 Do not resuscitate; I48.2 Chronic atrial fibrillation
CPT/HCPCS: 36415; 36600; 70496-TC; 70498-TC; 70553-TC; 71045-TC; 80048-TC; 80061-TC; 80076-TC; 81000-TC; 82140-TC; 82803-TC; 83735-TC; 84100-TC; 84443-TC; 84484-TC; 85025-TC; 85610-TC; 85730-TC; 87081-TC; 87086-TC; 87186-TC; 97530-TC; A6248; A6402; A9579; G0378; G0480; J2060; J2930; J3430; J7030; J7040; J7050; Q9967

== ENCOUNTER 2018-12-11 11:32 | Inpatient (IN) | payer MEDICARE, MEDICAID ==
[~2018-12-11] VITALS: Ht 170.2 cm; Wt 83.9 kg
[~2018-12-11 11:32] MED LIST changes: +BISA10SU11 RC; -BISA10SU8 RC; -FURO-145 PO; -GABA800T11 PO; +LEVO500T2 PO; +LINE600T12 PO; +METH1000 IV; +MUPI22OI7; -OXYB5TAB11 PO; -OXYC-128 PO; +PHYT10AM SQ; -POTA20TA83 PO; -TRAM50TA2 PO; +ZINC220T4 PO
[2018-12-11] MEDS ORDERED: POLY15DR40 EACHEYE (12:22)
[2018-12-11] MEDS ORDERED: APIX5TAB PO (12:22)
--- NOTE | 2018-12-11 12:25 | NUR ---
patient came in to the ER sent by PMD for pre op labs for scheduled debridement tomorrow. On room air, breathing evenly and unlabored. connected to the monitor and pulse ox. kept comfortable, will continue to monitor accordingly.
[2018-12-11 12:26] LABS: BASOPHILS % (AUTO) 0.2 % (0.0-2.0); EOSINOPHILS % (AUTO) 2.7 % (0.0-6.0); HEMATOCRIT 36 % (33-45); HEMOGLOBIN 11.8 g/dL (11.5-14.8); LYMPHOCYTES # (AUTO) 1.7 /CMM (0.8-4.8); LYMPHOCYTES % (AUTO) 25.3 % (20.0-44.0); MEAN CORPUSCULAR HGB CONC 33 g/dl (31.0-36.0); MEAN CORPUSCULAR VOLUME 77 fL (82-100); MONOCYTES # (AUTO) 0.7 /CMM (0.1-1.30); MONOCYTES % (AUTO) 10.3 % (2.0-12.0); NEUTROPHILS % (AUTO) 61.5 % (43.0-81.0); PLATELET COUNT (AUTO) 277 /CMM (150-450); RED BLOOD CELL COUNT(AUTO) 4.69 MIL/uL (4.0-5.2); WHITE BLOOD COUNT (AUTO) 6.6 K/uL (4.3-11.0)
--- NOTE | 2018-12-11 13:21 | NUR ---
[address] [place] [address]
--- NOTE | 2018-12-11 13:49 | NUR ---
report given to Aidee CAMARENA for bhavna.
[2018-12-11 14:04] LABS: CALCIUM, SERUM 9.2 mg/dL (8.5-10.1); CREATININE 0.6 mg/dL (0.6-1.3); POTASSIUM 4.1 mmol/L (3.5-5.1)
--- NOTE | 2018-12-11 14:20 | NUR ---
RECEIVED PT FROM ER IN [facility]. PT ALERT AND ORIENTED X 4. INTRODUCED SELF TO PT. PT ON ROOM AIR, SATURATING WELL, RESPIRATIONS EASY AND UNLABORED, NO SIGNS OF RESPIRATORY DISTRESS NOTED. CARSON CATHETER DRAINING YELLOW, CLOUDY URINE WITH SEDIMENT. IV SITE ON RIGHT FOREARM G20 PATENT, INTACT, WITH SALINE LOCK. LINE FLUSHED WITH NS ALL BELONGINGS ACCOUNTED FOR. HEAD TO TOE ASSESSMENT PERFORMED- PHOTOS TAKEN AND PLACED INTO CHART. BED IN LOW POSITION, LOCKED, CALL LIGHT WITHIN REACH.
--- NOTE | 2018-12-11 14:45 | NUR ---
CALLED NURSING FEATHEREDGE MACHINE OPERATOR TO ATTEMPT TO REACH DR. GONZALEZ.
--- NOTE | 2018-12-11 14:57 | NUR ---
transferred patient via gurney accompanied by EMT in no apparent distress. Aidee at bedside to assume care.
--- NOTE | 2018-12-11 15:30 | NUR ---
CALLED DR. GONZALEZ FOR ADMITTING ORDERS. WAITING FOR CALL BACK.
--- NOTE | 2018-12-11 17:31 | NUR ---
RECEIVED CALL BACK FROM DR. GONZALEZ- RECEIVED TELEPHONE ORDERS FOR REGULAR DIET, NPO STATUS AFTER MIDNIGHT.
[2018-12-11] MEDS ORDERED: ONDANSETRON HCL/PF 4 MG/2 ML VIAL IVP PRN (18:00)
[2018-12-11] MEDS ORDERED: Z GUARD REMEDY 2 OZ OINT TP PRN (18:00)
[2018-12-11] MEDS ORDERED: MAG HYDROX/AL HYDROX/SIMETH 30 ML UDC PO PRN (18:00)
[2018-12-11] MEDS ORDERED: BISACODYL SUPP (10 MG) 10 MG/SUPP.RECT SUPP.RECT RC PRN (18:00)
[2018-12-11] MEDS ORDERED: ACETAMINOPHEN 325 MG TABLET PO PRN ×2 (18:00)
[2018-12-11] MEDS ORDERED: MAGNESIUM HYDROXIDE 30 ML UDC PO PRN (18:00)
--- NOTE | 2018-12-11 19:05 | NUR ---
MS RN NOTE RECEIVED PT IN STABLE CONDITION A/O X4, CURRENTLY IN BED HAVING DINNER. NO SIGN OF SOB OR DISTRESS, NO C/O PAIN. CARSON IN PLACE WITH ADEQUATE URINE DRAINING. IV IN R FA #[address] S/L. ALL CURRENT NEEDS ATTENDED TO. BED LOW, LOCKED, UPPER RAILS UP AND CALL LIGHT WITHIN REACH. WILL CONT. TO MONITOR.
[2018-12-11 20:00] VITALS: BP 107/59
[2018-12-11] MEDS ORDERED: Medication Not On Formulary EA (Melatonin 3 MG) PO SCH (22:00)
[2018-12-11] MEDS: HYDROCODONE/APAP 5/325MG 1 EACH TABLET PO PRN (23:03)
--- NOTE | 2018-12-11 23:03 | NUR ---
MS RN NOTE PRN NORCO 5/325MG PO GIVEN FOR SACRAL PAIN 09/14. WILL CONT. TO MONITOR.
[2018-12-12 04:00] VITALS: BP 106/73
[2018-12-12] MEDS: HYDROCODONE/APAP 5/325MG 1 EACH TABLET PO PRN ×2 (04:53→20:55)
--- NOTE | 2018-12-12 04:57 | NUR ---
MS RN NOTE PER CHARGE NURSE NERISSA KRAUSE TO GIVE PRN NORCO 5/325MG PO GIVEN FOR SACRAL PAIN 09/14. WILL CONT. TO MONITOR.
--- NOTE | 2018-12-12 06:34 | NUR ---
MS RN NOTE PT REMAINS IN STABLE CONDITION A/O X4, CURRENTLY IN BED RESTING. NO SIGN OF SOB OR DISTRESS, NO C/O PAIN. CARSON IN PLACE WITH ADEQUATE URINE DRAINING. IV IN R FA #[address] S/L. ALL CURRENT NEEDS ATTENDED TO. BED LOW, LOCKED, UPPER RAILS UP AND CALL LIGHT WITHIN REACH. WILL CONT. TO MONITOR. PT CURRENTLY NPO, FOR WOUND DEBRIDEMENT TODAY. CONSENTS SIGNED. WILL ENDORSE TO NEXT SHIFT FOR GONZALO.
[2018-12-12 07:35] LABS: BASOPHILS # (AUTO) 0.1 /CMM (0.0-0.2); BASOPHILS % (AUTO) 0.9 % (0.0-2.0); HEMATOCRIT 35 % (33-45); HEMOGLOBIN 11.3 g/dL (11.5-14.8); LYMPHOCYTES # (AUTO) 1.4 /CMM (0.8-4.8); LYMPHOCYTES % (AUTO) 21.6 % (20.0-44.0); MEAN CORPUSCULAR HGB CONC 32 g/dl (31.0-36.0); MEAN CORPUSCULAR VOLUME 77 fL (82-100); MONOCYTES # (AUTO) 0.5 /CMM (0.1-1.30); MONOCYTES % (AUTO) 7.9 % (2.0-12.0); NEUTROPHILS # (AUTO) 4.4 /CMM (1.8-8.9); NEUTROPHILS % (AUTO) 66.6 % (43.0-81.0); PLATELET COUNT (AUTO) 256 /CMM (150-450); RED BLOOD CELL COUNT(AUTO) 4.57 MIL/uL (4.0-5.2); WHITE BLOOD COUNT (AUTO) 6.7 K/uL (4.3-11.0)
--- NOTE | 2018-12-12 07:56 | NUR ---
RN OPENING NOTES PT IS AWAKE. DENIES PAIN OR SOB AT PRESENT MOMENT. REPORT RECEIVED FROM ELEMENTARY SCHOOL PRINCIPAL RN. PT APPEARS TO BE COMFORTABLE STATES SHE DOES NOT NEED ANYTHING RIGHT NOW. BED IS LOCKED AND IN LOWEST POSITION WITH CALL LIGHT IN REACH. WILL CONTINUE TO MONITOR.
[2018-12-12 08:00] VITALS: BP 118/80
[2018-12-12 08:06] LABS: CALCIUM, SERUM 8.6 mg/dL (8.5-10.1); CREATININE 0.5 mg/dL (0.6-1.3); MAGNESIUM 1.8 mg/dL (1.8-2.4); PHOSPHORUS 3.2 mg/dL (2.5-4.9); POTASSIUM 3.8 mmol/L (3.5-5.1)
[2018-12-12] MEDS ORDERED: SILVER NITRATE APPLICATOR 1 EA BOX TP STA (08:55)
[2018-12-12] MEDS ORDERED: LIDOCAINE 1%-EPI 1:100,000 20 ML VIAL TP STA (08:55)
[2018-12-12] MEDS: MULTIVIT W/MINERALS 1 TAB TABLET PO SCH (09:42)
[2018-12-12] MEDS: ACETAMINOPHEN 325 MG TABLET PO SCH (09:42)
[2018-12-12] MEDS: ASCORBIC ACID 500 MG TABLET PO SCH (09:42)
[2018-12-12] MEDS: POLYVINYL ALCOHOL 15 ML BOTTLE EACHEYE SCH ×2 (09:42→17:43)
[2018-12-12] MEDS: DOCUSATE SODIUM 100 MG CAPSULE PO SCH ×2 (09:42→17:43)
[2018-12-12] MEDS: FLUTICASONE PROPIONATE 16 GM BOTTLE NS SCH (09:42)
[2018-12-12] MEDS: METOPROLOL TARTRATE 25 MG TABLET PO SCH ×2 (09:43→17:43)
--- NOTE | 2018-12-12 15:48 | NUR ---
WOUND DEBRIDEMENT DONE BY DR. THOMPSON. PER PT CAN EAT NOW. FOOD ORDERED FOR PT. Addendum: 12/12/18 at 1913 by DENISE WILL RN PT REFUSED WOUND PHOTOS AFTER WOUND DEBRIDEMENT STATED IT WAS JUST DONE AND IT IS VERY TENDER RIGHT NOW.
[2018-12-12 16:00] VITALS: BP 119/71
[2018-12-12] MEDS: DAKINS QUARTER STRENGTH (0.125%) 480 ML BOTTLE TOP SCH (17:55)
--- NOTE | 2018-12-12 18:39 | NUR ---
RN CLOSING NOTES PT DENIES PAIN AND SOB AT PRESENT TIME. PT REPOSITIONED. PT IS A&OX4. PT HAD WOUND DEBRIDEMENT EARLIER TODAY AT 1500. BED IS LOCKED AND IN LOWEST POSITION WITH CALL LIGHT IN REACH. WILL ENDORSE GONZALO TO DRY KILN FEEDER RN.
--- NOTE | 2018-12-12 19:30 | NUR ---
RN OPENING NOTES, PATIENT AWAKE, A/O X ABLE TO VERBALIZED NEEDS AND CONCERNS, BREATHING EVEN AND UNLABORED, NO SOB/ACUTE DISTRESS NOTED, DENIES PAIN OR DISCOMFORT AT THIS TIME, BED LOCKED AND IN LOWEST POSITION, CALL LIGHT W/I REACH, WILL CONTINUE TO MONITOR CLOSELY.
[2018-12-12 20:00] VITALS: BP 107/64
[2018-12-12] MEDS: ZOLPIDEM TARTRATE 5 MG TABLET PO PRN (20:52)
[2018-12-13 04:00] VITALS: BP 108/67
--- NOTE | 2018-12-13 06:40 | NUR ---
RN NOTES, PATIENT SLEEPING AT THIS TIME, BUT RESPONSIVE TO VERBAL STIMULI, BREATHING EVEN AND UNLABORED, NO SOB/ACUTE DISTRESS NOTED, NO SIGNIFICANT CHANGE IN CONDITION DURING THE NIGHT, BED LOCKED AND IN LOWEST POSITION, CALL LIGHT W/I REACH, WILL ENDORSE CONTINUITY OF CARE TO ONCOMING NURSE.
--- NOTE | 2018-12-13 07:25 | NUR ---
MS/RN OPENING NOTES RECEIVED PATIENT IN BED AWAKE, ALERT AND ABLE TO MAKE NEEDS KNOWN. NO PAIN OR ACUTE DISTRESS AT THIS TIME. RESPIRATION EVEN AND UNLABORED. SKIN IS DRY WARM TO TOUCH. PATIENT NOTED WITH IV ACCES ON RFA #20G INTACT AND PATENT. FLUSHING WELL. ALL NEEDS ANTICIPATED. CALL LIGHT WITHIN REACHED. SAFETY MAINTAINED. BED LOCKED AND IN LOWEST POSITION. WILL CONTINUE TO MONITOR CLOSELY.
[2018-12-13 08:00] VITALS: BP 102/79
[2018-12-13 08:17] VITALS: BP 102/79
[2018-12-13] MEDS: ACETAMINOPHEN 325 MG TABLET PO SCH (08:26)
[2018-12-13] MEDS: MULTIVIT W/MINERALS 1 TAB TABLET PO SCH (08:27)
[2018-12-13] MEDS: FLUTICASONE PROPIONATE 16 GM BOTTLE NS SCH (08:27)
[2018-12-13] MEDS: ASCORBIC ACID 500 MG TABLET PO SCH (08:27)
[2018-12-13] MEDS: DOCUSATE SODIUM 100 MG CAPSULE PO SCH ×2 (08:27→16:31)
[2018-12-13] MEDS: POLYVINYL ALCOHOL 15 ML BOTTLE EACHEYE SCH ×2 (08:28→16:31)
[2018-12-13] MEDS: METOPROLOL TARTRATE 25 MG TABLET PO SCH ×2 (08:30→16:32)
[2018-12-13] MEDS: DAKINS QUARTER STRENGTH (0.125%) 480 ML BOTTLE TOP SCH (08:31)
[2018-12-13] MEDS: HYDROCODONE/APAP 5/325MG 1 EACH TABLET PO PRN ×3 (09:10→21:03)
--- NOTE | 2018-12-13 09:16 | NUR ---
MS/RN NOTES MEDICATION METOPROLOL WAS HELD DUE TO LOW BP OR 102/79. PATIENT CONTINUES TO REMAIN IN STABLE CONDITION. WILL CONTINUE PLAN OF CARE.
[2018-12-13 16:00] VITALS: BP_SYST 110; BP_SYST 115; BP_DIAS 75; BP_DIAS 80
--- NOTE | 2018-12-13 18:58 | NUR ---
MS/RN CLOSING NOTES PATIENT CONTINUES TO REMAIN IN STABLE CONDITION THROUGHOUT THE SHIFT. PROVIDED COMFORT AND SAFETY. PATIENT ABLE TO TOLERATE MEALS AND MEDS WELL. NO ADVERSE REACTIONS AT THIS TIME. PATIENT NOTED WITH IV ACCES ON RFA #20G INTACT AND PATENT. FLUSHING WELL. ALL NEEDS ANTICIPATED. CALL LIGHT WITHIN REACHED. SAFETY MAINTAINED. BED LOCKED AND IN LOWEST POSITION. WILL CONTINUE TO MONITOR CLOSELY. ENDORSED TO PM NURSE FOR GONZALO.
--- NOTE | 2018-12-13 19:30 | NUR ---
MS RN OPENING NOTE RECEIVED PATIENT A/O X4 AT THE MOMENT NO SIGNS OF DISTRESS. PATIENT IS ON ROOM AIR WITH NO SOB. PATIENT HAS IV ON LT FOREARM WITH G#20 PATENT AND FLUSHING WELL. AALL SAFETY PRECAUTIONS APPLIED. WILL CONTINUE TO MONITOR PATIENT
[2018-12-13 20:00] VITALS: BP 107/58
[2018-12-13] MEDS: ZOLPIDEM TARTRATE 5 MG TABLET PO PRN (21:03)
[2018-12-14 04:00] VITALS: BP 109/71
--- NOTE | 2018-12-14 07:26 | NUR ---
MS RN CLOSING NOTE PATIENT IN BED RESTING. NO COMPLAINTS OF DISCOMFORT. PATIENT ON ROOM AIR WITH NO SOB. APPLIED ALL SAFETY PRECAUTIONS. ENDORSED PATIENT O MORNING NURSE.
[2018-12-14 08:00] VITALS: BP 147/79
[2018-12-14] MEDS: HYDROCODONE/APAP 5/325MG 1 EACH TABLET PO PRN ×3 (08:43→11:04)
[2018-12-14] MEDS: ASCORBIC ACID 500 MG TABLET PO SCH (11:01)
[2018-12-14] MEDS: MULTIVIT W/MINERALS 1 TAB TABLET PO SCH (11:01)
[2018-12-14] MEDS: ACETAMINOPHEN 325 MG TABLET PO SCH (11:01)
[2018-12-14] MEDS: DOCUSATE SODIUM 100 MG CAPSULE PO SCH (11:01)
[2018-12-14] MEDS: METOPROLOL TARTRATE 25 MG TABLET PO SCH (11:04)
[2018-12-14] MEDS: FLUTICASONE PROPIONATE 16 GM BOTTLE NS SCH (11:15)
[2018-12-14] MEDS: POLYVINYL ALCOHOL 15 ML BOTTLE EACHEYE SCH (11:15)
[2018-12-14] MEDS: DAKINS QUARTER STRENGTH (0.125%) 480 ML BOTTLE TOP SCH (11:30)
[2018-12-14 12:00] VITALS: BP 147/79
[2018-12-14 16:00] VITALS: BP 98/56
--- NOTE | 2018-12-14 16:25 | NUR ---
Patient Discharged to Rehab Facility ([facility]) Patient was piscked up by paramedics. Report given by NICOL Calloway to Henry CAMARENA ([facility]) and paramedics. Patient in stable condition. Not in any form of distress.
== END 2018-12-14 16:28 | DRG 581 ==
LOC: ER 11:37 → MEDSG1 13:42
PROVIDERS: ADMIT Internal Medicine; ATTEND Internal Medicine
PROC: 0KBP0ZZ Excision of Left Hip Muscle, Open Approach (ICD-10-PCS; principal; 2018-12-12)
DX: L89.324 Pressure ulcer of left buttock, stage 4 (principal); J44.9 Chronic obstructive pulmonary disease, unspecified; G35 Multiple sclerosis; I10 Essential (primary) hypertension; K21.9 Gastro-esophageal reflux disease without esophagitis; G89.4 Chronic pain syndrome; F17.210 Nicotine dependence, cigarettes, uncomplicated; E78.5 Hyperlipidemia, unspecified; Z79.01 Long term (current) use of anticoagulants; I48.0 Paroxysmal atrial fibrillation; G62.9 Polyneuropathy, unspecified; E66.01 Morbid (severe) obesity due to excess calories; Z68.29 Body mass index [BMI] 29.0-29.9, adult; N32.81 Overactive bladder; F32.9 Major depressive disorder, single episode, unspecified; Z99.3 Dependence on wheelchair
CPT/HCPCS: 36415; 71045-TC; 80048-TC; 80061-TC; 83735-TC; 84100-TC; 85025-TC; 85730-TC; 87081-TC; A6253; A6403; A6407; G0378; J3490

== ENCOUNTER 2019-02-27 08:25 | Outpatient (CLI) | payer MEDICARE, MEDICAID ==
[~2019-02-27 08:25] MED LIST changes: +APIX5TAB PO; -ASCO500T8 PO; +ASCO500T87 PO; -LEVO500T2 PO; -LINE600T12 PO; -MAGN400O6 PO; -MELA3TAB PO; +MELA3TAB63 PO; -METH1000 IV; -MUPI22OI7; -PHYT10AM SQ; +POLY15DR40 EACHEYE; -ZINC220T4 PO
== END 2019-02-27 23:59 ==
LOC: WOU 08:25
PROVIDERS: ATTEND Surgery
DX: T81.89XD Other complications of procedures, not elsewhere classified, subsequent encounter (principal); E66.9 Obesity, unspecified; Z68.26 Body mass index [BMI] 26.0-26.9, adult; M62.50 Muscle wasting and atrophy, not elsewhere classified, unspecified site; R26.2 Difficulty in walking, not elsewhere classified
CPT/HCPCS: G0463

== ENCOUNTER 2019-03-06 09:45 | Outpatient (CLI) | payer MEDICARE, MEDICAID | END 2019-03-06 23:59 | LOC: WOU 09:45 | PROVIDERS: ATTEND Surgery | DX: T81.89XA Other complications of procedures, not elsewhere classified, initial encounter (principal); E66.9 Obesity, unspecified; Z68.26 Body mass index [BMI] 26.0-26.9, adult; R26.2 Difficulty in walking, not elsewhere classified; G35 Multiple sclerosis | CPT/HCPCS: 15271; Q4196 ==

== ENCOUNTER 2019-03-13 08:10 | Outpatient (CLI) | payer MEDICARE, MEDICAID | END 2019-03-13 23:59 | LOC: WOU 08:10 | PROVIDERS: ATTEND Surgery | DX: T81.89XA Other complications of procedures, not elsewhere classified, initial encounter (principal); E66.9 Obesity, unspecified; Z68.26 Body mass index [BMI] 26.0-26.9, adult; G35 Multiple sclerosis; R26.2 Difficulty in walking, not elsewhere classified; Z79.899 Other long term (current) drug therapy | CPT/HCPCS: 15271; Q4196 ==

== ENCOUNTER 2019-03-20 08:30 | Outpatient (CLI) | payer MEDICARE, MEDICAID | END 2019-03-20 23:59 | LOC: WOU 08:30 | PROVIDERS: ATTEND Surgery | DX: T81.31XA Disruption of external operation (surgical) wound, not elsewhere classified, initial encounter (principal); E66.9 Obesity, unspecified; Z68.26 Body mass index [BMI] 26.0-26.9, adult; G35 Multiple sclerosis; R26.2 Difficulty in walking, not elsewhere classified | CPT/HCPCS: 11043; 11046; J3490 ==

== ENCOUNTER 2019-03-27 08:25 | Outpatient (CLI) | payer MEDICARE, MEDICAID | END 2019-03-27 23:59 | LOC: WOU 08:25 | PROVIDERS: ATTEND Surgery | DX: T81.31XA Disruption of external operation (surgical) wound, not elsewhere classified, initial encounter (principal); E66.9 Obesity, unspecified; Z68.26 Body mass index [BMI] 26.0-26.9, adult; R26.2 Difficulty in walking, not elsewhere classified; G35 Multiple sclerosis; Z87.891 Personal history of nicotine dependence; Z79.01 Long term (current) use of anticoagulants; Z79.899 Other long term (current) drug therapy | CPT/HCPCS: 15271; Q4196 ==

== ENCOUNTER 2019-04-03 08:00 | Outpatient (CLI) | payer MEDICARE, MEDICAID ==
[~2019-04-03 08:00] MED LIST changes: +MELA3TAB41 PO; -MELA3TAB63 PO
== END 2019-04-03 23:59 | disposition home health service (06) ==
LOC: WOU 08:00
PROVIDERS: ATTEND Surgery
DX: T81.31XA Disruption of external operation (surgical) wound, not elsewhere classified, initial encounter (principal); E66.9 Obesity, unspecified; Z68.26 Body mass index [BMI] 26.0-26.9, adult; R26.2 Difficulty in walking, not elsewhere classified; M62.50 Muscle wasting and atrophy, not elsewhere classified, unspecified site; Z79.01 Long term (current) use of anticoagulants; Z79.899 Other long term (current) drug therapy
CPT/HCPCS: 15271; Q4196

== ENCOUNTER 2019-04-10 08:15 | Outpatient (CLI) | payer MEDICARE, MEDICAID | END 2019-04-10 23:59 | LOC: WOU 08:15 | PROVIDERS: ATTEND Surgery | DX: T81.31XA Disruption of external operation (surgical) wound, not elsewhere classified, initial encounter (principal); E66.9 Obesity, unspecified; Z68.26 Body mass index [BMI] 26.0-26.9, adult; R26.2 Difficulty in walking, not elsewhere classified; G35 Multiple sclerosis; Z79.01 Long term (current) use of anticoagulants; Z79.899 Other long term (current) drug therapy | CPT/HCPCS: 15271; Q4196 ==

== ENCOUNTER 2019-04-17 08:30 | Outpatient (CLI) | payer MEDICARE, MEDICAID ==
[~2019-04-17 08:30] MED LIST changes: -MELA3TAB41 PO; +MELA3TAB63 PO
== END 2019-04-17 23:59 ==
LOC: WOU 08:30
PROVIDERS: ATTEND Surgery
DX: T81.31XA Disruption of external operation (surgical) wound, not elsewhere classified, initial encounter (principal); E66.9 Obesity, unspecified; Z68.26 Body mass index [BMI] 26.0-26.9, adult; R26.2 Difficulty in walking, not elsewhere classified; G35 Multiple sclerosis; Z79.01 Long term (current) use of anticoagulants; Z79.899 Other long term (current) drug therapy
CPT/HCPCS: 15271; Q4196

== ENCOUNTER 2019-04-24 08:00 | Outpatient (CLI) | payer MEDICARE, MEDICAID | END 2019-04-24 23:59 | LOC: WOU 08:00 | PROVIDERS: ATTEND Surgery | DX: T81.31XA Disruption of external operation (surgical) wound, not elsewhere classified, initial encounter (principal); E66.9 Obesity, unspecified; Z68.26 Body mass index [BMI] 26.0-26.9, adult; R26.2 Difficulty in walking, not elsewhere classified; M62.50 Muscle wasting and atrophy, not elsewhere classified, unspecified site; Z79.01 Long term (current) use of anticoagulants; Z79.899 Other long term (current) drug therapy | CPT/HCPCS: 15271; Q4196 ==

== ENCOUNTER 2019-05-01 08:00 | Outpatient (CLI) | payer MEDICARE, MEDICAID ==
[~2019-05-01 08:00] MED LIST changes: +MELA3TAB41 PO; -MELA3TAB63 PO
== END 2019-05-01 23:59 ==
LOC: WOU 08:00
PROVIDERS: ATTEND Surgery
DX: T81.31XA Disruption of external operation (surgical) wound, not elsewhere classified, initial encounter (principal); E66.9 Obesity, unspecified; Z68.26 Body mass index [BMI] 26.0-26.9, adult; M62.50 Muscle wasting and atrophy, not elsewhere classified, unspecified site; R26.2 Difficulty in walking, not elsewhere classified; Z79.01 Long term (current) use of anticoagulants; Z79.899 Other long term (current) drug therapy
CPT/HCPCS: 15271; Q4196

== ENCOUNTER 2019-05-15 08:00 | Outpatient (CLI) | payer MEDICARE, MEDICAID ==
[~2019-05-15 08:00] MED LIST changes: -MELA3TAB41 PO; +MELA3TAB63 PO
== END 2019-05-15 23:59 ==
LOC: WOU 08:00
PROVIDERS: ATTEND Surgery
DX: T81.31XA Disruption of external operation (surgical) wound, not elsewhere classified, initial encounter (principal); E66.9 Obesity, unspecified; Z68.26 Body mass index [BMI] 26.0-26.9, adult; R26.2 Difficulty in walking, not elsewhere classified; M62.50 Muscle wasting and atrophy, not elsewhere classified, unspecified site; Z79.01 Long term (current) use of anticoagulants; Z79.899 Other long term (current) drug therapy
CPT/HCPCS: 15271; Q4196